=== PATIENT | female | born 1965 | race Caucasian/White ===

== ENCOUNTER → 2016-11-11 | Outpatient (CLI) | payer MEDICAID ==
[~2016-11-11] MED LIST: ALPR1TAB; ALPR1TAB21; BSP10T PO; DIAZ-345 PO; ESTR1TAB24; HYDR-2890 PO; HYDR-3714 PO; HYDR1TAB PO; PENI500T PO; PREG150C PO; PROP10TA8; QTP100T; SIMV20TA3 PO; TRAM50TA2; TRAM50TA2 PO
--- NOTE | 2016-11-11 13:33 | Diagnostic Imaging Report ---
Bilateral sacroiliac joints. INDICATION: Cervical carcinoma, low back pain. AP and lateral views were obtained. There are no previous plain film examinations available for comparison. The MRI lumbar spine exam of 03/14/2013, failed to show any abnormality of the visualized sacrum. On this study there is no fracture or acute bony abnormality identified. There is mild symmetrical sclerosis of the sacroiliac joints. There is a 0.5 x 4.7-cm tubular calcified structure overlying the left lateral aspect of L5 and the left sacral promontory. This is of uncertain etiology but unlikely to be clinically significant. The soft tissues are unremarkable. IMPRESSION: 1. There is no evidence for an acute bony abnormality. 2. There is mild symmetrical sclerosis of the sacroiliac joints. 3. The calcified tubular structure overlying the left sacral promontory and L5 is of uncertain etiology, but unlikely to be clinically significant. Dictated by: Dictated on workstation # [id number]
--- NOTE | 2016-11-11 13:38 | Diagnostic Imaging Report ---
Lumbar spine. INDICATION: Back pain. AP, lateral, and spot lateral views were obtained. The AP view reveals that there are six lumbar-type vertebrae. This is a developmental variant. For the purposes of this report the sixth vertebra will be referred to as S1. The lateral view shows the vertebral body heights and alignment to be generally within normal limits and similar to the MRI lumbar spine exam of 03/14/2013. There is no fracture or acute bony abnormality identified. The intervertebral disc spaces are well maintained. As noted on the sacrum and coccyx exam performed in conjunction with this study, there is a tubular calcified structure overlying the lateral aspect of the inferior plate of L5 and the sacral promontory on the left. This is of uncertain etiology, although unlikely to be clinically significant. There is no paraspinal mass identified. IMPRESSION: 1. There is no evidence for an acute bony abnormality of the lumbar spine. 2. If there is clinical concern regarding spinal stenosis or nerve root encroachment, then a repeat MRI lumbar spine exam would be recommended. 3. There are six lumbar-type segments. This is a developmental variant. Dictated by: Dictated on workstation # [id number]
== END ==
LOC: RAD 09:59
PROVIDERS: ATTEND Pain Medicine Pain Medicine
DX: M54.5 Low back pain (principal); M53.3 Sacrococcygeal disorders, not elsewhere classified
CPT/HCPCS: 72100; 72202

== ENCOUNTER 2016-11-27 11:23 | Outpatient (CLI) | payer MEDICAID ==
[~2016-11-27] VITALS: Ht 165.1 cm; Wt 47.6 kg
[2016-11-27] MEDS ORDERED: LIDOCAINE 1% INJ 20 ML (XYLOCAINE) VIAL ONE (11:32)
[2016-11-27] MEDS ORDERED: TRIAMCINOLONE ACET (KENALOG-40) 40 MG/ML 1 ML VIAL ONE (11:32)
[2016-11-27] MEDS ORDERED: BUPIVACAINE 0.25% 30 ML (SENSORCAINE) VIAL ONE (11:32)
[2016-11-27 11:38] VITALS: BP 142/93
[2016-11-27 11:58] VITALS: BP 142/62
--- NOTE | 2016-11-27 14:53 | Pain Medicine-Procedure ---
Procedure Pre-Op/Post-Op Diagnosis Diagnosis: sacrococcygeal disorder Indications for Operation Hip pain Attending Surgeon Wale Procedure Date of Service: Nov 27, 2016 Procedure: Flouroscopic guided bilateral sacroiliac joint injection PROCEDURE IN DETAIL: After obtaining informed consent from the patient, the patient's chart was reviewed. The patient was then brought to the procedure room and placed in the prone position. A time out was performed. The back was prepped with antiseptic solution and under fluoroscopic guidance the patient's sacroiliac joint on both sides was identified. Attention was first turned to the right sacroiliac joint injection where 2 mL's of 1% lidocaine was used to anesthetize the skin and then two 22-gauge 3.5 inch spinal needles were inserted and advanced under flouroscopic guidance until they were in the lower 1 /3 of the right sacroiliac joint. Next, attention was then turned to the left sacroiliac joint injection where 2 mL's of 1% lidocaine was used to anesthetize the skin and then two 22-gauge 3.5 inch spinal needles were inserted and advance under flouroscopic guidance until they were in the lower 1/3 of the sacroiliac joint on the left side. After negative aspiration, each needle was injected with 40 mg of Kenalog along with 2 mL's of 0.25% marcaine. All needles were then flushed with 1% lidocaine and then removed. Band-Aids were applied to all the sites and the patient tolerated the procedure well and was taken to the recovery area in stable condition. Complications None GENARO ARAYA MD Nov 27, 2016 2:53 pm
== END 2016-11-27 11:59 | disposition home or self-care (01) ==
LOC: CARD 11:23
PROVIDERS: ATTEND Pain Medicine Pain Medicine
DX: M53.3 Sacrococcygeal disorders, not elsewhere classified (principal); M51.16 Intervertebral disc disorders with radiculopathy, lumbar region
CPT/HCPCS: 27096

== ENCOUNTER → 2017-08-13 | Outpatient (CLI) | payer MEDICAID ==
--- NOTE | 2017-08-16 09:33 | Diagnostic Imaging Report ---
INDICATION: Screening. TECHNIQUE: Screening digital mammography was performed bilaterally with a Computer Aided Detection (CAD) System. COMPARISON: 06/25/2010, 07/28/2009, and 11/23/2007. FINDINGS: There is a moderate amount of residual fibroglandular tissue bilaterally. There are some vascular calcifications and benign type calcifications. There is no dominant mass, spiculated lesion, or suspicious calcification identified. The skin, nipples, and axillae are unremarkable. IMPRESSION: Benign findings. ACR BI-RADS Category 2: Benign findings. Result letter will be mailed to the patient. Note: At least 10% of breast cancer is not imaged by mammography. Dictated by: Dictated on workstation # [id number]
== END ==
LOC: RAD 09:47
PROVIDERS: ATTEND Family Medicine
DX: Z12.31 Encounter for screening mammogram for malignant neoplasm of breast (principal)
CPT/HCPCS: 77067

== ENCOUNTER → 2018-10-28 | Outpatient (CLI) | payer MEDICAID ==
--- NOTE | 2018-10-28 11:04 | Diagnostic Imaging Report ---
INDICATION: Routine screening. COMPARISON is made with prior mammogram from 08/13/2017. TECHNIQUE: 2-D and 3-D bilateral screening mammography was performed with CAD. FINDINGS: Both breasts are radiographically dense, limiting the sensitivity of mammography. There are vascular calcifications bilaterally. No mass or malignant-appearing microcalcifications are seen. The axillae are unremarkable. IMPRESSION: BI-RADS category 1. No mammographic features suspicious for malignancy are identified. Dictated by: Dictated on workstation # [id number]
== END ==
LOC: RAD 08:55
PROVIDERS: ATTEND Family Medicine
DX: Z12.31 Encounter for screening mammogram for malignant neoplasm of breast (principal)
CPT/HCPCS: 77067

== ENCOUNTER 2020-07-06 18:21 | Observation (INO) | payer MEDICAID ==
[~2020-07-06] VITALS: Ht 170 cm; Wt 53.2 kg
[2020-07-06] MEDS ORDERED: ASPIRIN 81 MG CHEW (CHILDREN'S ASA) PO ONE (18:30)
[2020-07-06] MEDS ORDERED: LACTATED RINGERS 1,000 ML IV ONE (18:36)
[2020-07-06 18:40] LABS: BASOPHILS # (AUTO) 0.1 10^3/uL (0.0-0.1); BASOPHILS % (AUTO) 1 % (0-10); EOSINOPHILS # (AUTO) 0.1 10^3/uL (0.0-0.3); EOSINOPHILS % (AUTO) 1 % (0-10); HEMATOCRIT 47 % (35-52); HEMOGLOBIN 16.6 g/dL (11.5-16.0); LYMPHOCYTES # (AUTO) 2.7 10^3/uL (1.0-4.0); LYMPHOCYTES % (AUTO) 22 % (12-44); MEAN CORPUSCULAR HEMOGLOBIN 33 pg (25-34); MEAN CORPUSCULAR HGB CONC 35 g/dL (32-36); MEAN CORPUSCULAR VOLUME 94 fL (80-99); MEAN PLATELET VOLUME 8.7 fL (9.0-12.2); MONOCYTES # (AUTO) 1.2 10^3/uL (0.0-1.0); MONOCYTES % (AUTO) 10 % (0-12); NEUTROPHILS # (AUTO) 8.1 10^3/uL (1.8-7.8); NEUTROPHILS % (AUTO) 66 % (42-75); PLATELET COUNT 326 10^3/uL (130-400); WHITE BLOOD COUNT 12.2 10^3/uL (4.3-11.0)
[2020-07-06] MEDS ORDERED: LORazepam INJ 2 MG/ML (ATIVAN) VIAL IVP ONE (18:45)
--- NOTE | 2020-07-06 18:49 | NUR ---
TO CT PER W/C
[2020-07-06 18:52] LABS: INR 0.9 (0.8-1.4); POTASSIUM 3.2 MMOL/L (3.6-5.0); PROTHROMBIN TIME PATIENT 12.4 SEC (12.2-14.7)
[2020-07-06 18:53] LABS: CALCIUM 8.7 MG/DL (8.5-10.1)
[2020-07-06 18:54] LABS: TOTAL PROTEIN 6.3 GM/DL (6.4-8.2)
[2020-07-06 18:56] LABS: BILIRUBIN,TOTAL 0.4 MG/DL (0.1-1.0)
[2020-07-06 18:58] LABS: CREATININE SERUM 1.4 MG/DL (0.60-1.30)
[2020-07-06 19:01] LABS: MAGNESIUM 1.9 MG/DL (1.6-2.4)
--- NOTE | 2020-07-06 19:40 | Diagnostic Imaging Report ---
EXAMINATION: Chest, 1 view. HISTORY: Chest pain. COMPARISON: Chest radiograph 10/03/2008. FINDINGS: Heart size and pulmonary vasculature are normal. The lungs are clear without consolidation, pleural effusion or pneumothorax. The osseous structures are intact. IMPRESSION: No acute radiographic abnormality in the chest. Dictated by: Dictated on workstation # [id number]
[2020-07-06] MEDS ORDERED: ENOXAPARIN 60 MG/0.6 ML (LOVENOX) SYR SC ONE (20:15)
[2020-07-06] MEDS ORDERED: KCL 10 MEQ TAB (MICRO K) PO ONE (20:30)
--- NOTE | 2020-07-06 20:31 | ED Chest Pain ---
General Chief Complaint: Chest Pain Stated Complaint: CHEST PAIN Nursing Triage Note: PATIENT STATES TOOK NEW MEDICATION (UNKNOWN MEDICATION) FOR HTN TONIGHT, STATES SHE FELT DIZZY, AND RAPID HEART BEAT. PAIN IN CHEST, RAPID BREATHING Nursing Sepsis Screen: No Definite Risk Source: patient, EMS Exam Limitations: no limitations History of Present Illness Date Seen by Provider: Jul 06, 2020 Time Seen by Provider: 18:26 Initial Comments This 55-year-old woman presents to the emergency room via EMS with a couple weeks of intermittent lightheadedness and dizziness, pleuritic chest pain, and anxiety. This became worse tonight. She has no known heart disease but is a sm oker. She is noted to be tachycardic. EMS notes that she appeared to be hyperventilating when they first arrived. Family members were recently Covid positive but she has not been exposed to them in over 2 weeks. Patient herself had a Covid test performed at an outpatient facility after these symptoms started. That was reportedly negative. She denies any new cough or fever. Allergies and Home Medications Allergies Coded Allergies: Anand Known Allergies (Verified Allergy, Unknown, 09/15/06) Home Medications Hydrocodone Bit/Acetaminophen 1 Tab Tablet, 1 TAB PO Q4H PRN for PAIN Prescribed by: TETE MIR on 01/22/15 1134 Simvastatin 20 Mg Tablet, 20 MG PO DAILY, (Reported) Patient Home Medication List Home Medication List Reviewed: Yes Review of Systems Review of Systems Constitutional: no symptoms reported EENTM: No Symptoms Reported Respiratory: See HPI Cardiovascular: See HPI Gastrointestinal: Nausea Genitourinary: No Symptoms Reported Musculoskeletal: no symptoms reported Skin: no symptoms reported Psychiatric/Neurological: See HPI Endocrine: No Symptoms Reported Hematologic/Lymphatic: No Symptoms Reported Past Zkiasak-Nehkkv-Aeffln Hx Past Med/Social Hx: Reviewed Nursing Past Med/Soc Hx Patient Social History Recent Foreign Travel: No Contact w/Someone Who Travel: No Recent Infectious Disease Expo: Yes Physical Abuse: No Sexual Abuse: No Mistreated: No Fear: No Past Medical History Surgeries: Yes Hysterectomy Respiratory: Yes (Tobaccoism) Cardiac: Yes High Cholesterol, Hypertension Neurological: No Reproductive Disorders: No [employer]IONER [employer]SERVATION [employer] RESOURCES History: Hysterectomy Sexually Transmitted Disease: No Gastrointestinal: No Musculoskeletal: Yes Chronic Back Pain HEENT: No Cancer: Yes Cervical Did You Recieve Any Treatments: Yes What Type of Treatment Did You: Surgical Intervention Psychosocial: Yes Anxiety, Depression Family Medical History No Pertinent Family Hx Physical Exam Vital Signs Vital Signs - First Documented 07/06/20 18:29 Pulse 108 Resp 18 B/P (MAP) 136/77 (96) Pulse Ox 100 O2 Delivery Room Air Capillary Refill : Less Than 3 Seconds Height, Weight, BMI Height: 5'5.00" Weight: 105lbs. 0.0oz. 47.976224st; 15.00 BMI Method: General Appearance: WD/WN, Anxious, Thin HEENT: PERRL/EOMI, Normal ENT Inspection Neck: Normal Inspection Respiratory: Lungs Clear, Normal Breath Sounds, No Accessory Muscle Use, No Respiratory Distress, Other (Upper anterior chest tender to palpation) Cardiovascular: No Edema, No Murmur, Normal Peripheral Pulses, Tachycardia Gastrointestinal: Normal Bowel Sounds, Soft, Tenderness (Slight tenderness in the epigastric area with palpation) Extremity: Normal Inspection, Non Tender, No Calf Tenderness, No Pedal Edema Neurologic/Psychiatric: Alert, Oriented x3, No Motor/Sensory Deficits, e commerce project manager II- XII Norm as Tested, Other (Anxious, normal affect) Skin: Normal Color, Warm/Dry Progress/Results/Core Measures Results/Orders Lab Results Laboratory Tests Test 07/06/20 18:30 Range/Units White Blood Count 12.2 H 4.3-11.0 10^3/uL Red Blood Count 5.05 3.80-5.11 10^6/uL Hemoglobin 16.6 H 11.5-16.0 g/dL Hematocrit 47 35-52 % Mean Corpuscular Volume 94 80-99 fL Mean Corpuscular Hemoglobin 33 25-34 pg Mean Corpuscular Hemoglobin Concent 35 32-36 g/dL Red Cell Distribution Width 13.0 10.0-14.5 % Platelet Count 326 130-400 10^3/uL Mean Platelet Volume 8.7 L 9.0-12.2 fL Immature Granulocyte % (Auto) 0 % Neutrophils (%) (Auto) 66 42-75 % Lymphocytes (%) (Auto) 22 12-44 % Monocytes (%) (Auto) 10 0-12 % Eosinophils (%) (Auto) 1 0-10 % Basophils (%) (Auto) 1 0-10 % Neutrophils # (Auto) 8.1 H 1.8-7.8 10^3/uL Lymphocytes # (Auto) 2.7 1.0-4.0 10^3/uL Monocytes # (Auto) 1.2 H 0.0-1.0 10^3/uL Eosinophils # (Auto) 0.1 0.0-0.3 10^3/uL Basophils # (Auto) 0.1 0.0-0.1 10^3/uL Immature Granulocyte # (Auto) 0.0 0.0-0.1 10^3/uL Erythrocyte Sedimentation Rate 44 H 0-30 MM/HR Prothrombin Time 12.4 12.2-14.7 SEC INR Comment 0.9 0.8-1.4 Activated Partial Thromboplast Time 29 24-35 SEC D-Dimer 1.82 H 0.00-0.49 UG/ML Sodium Level 132 L 135-145 MMOL/L Potassium Level 3.2 L 3.6-5.0 MMOL/L Chloride Level 92 L 98-107 MMOL/L Carbon Dioxide Level 27 21-32 MMOL/L Anion Gap 13 5-14 MMOL/L Blood Urea Nitrogen 18 7-18 MG/DL Creatinine 1.40 H 0.60-1.30 MG/DL Estimat Glomerular Filtration Rate 39 BUN/Creatinine Ratio 13 Glucose Level 120 H 70-105 MG/DL Calcium Level 8.7 8.5-10.1 MG/DL Corrected Calcium 9.5 8.5-10.1 MG/DL Magnesium Level 1.9 1.6-2.4 MG/DL Total Bilirubin 0.4 0.1-1.0 MG/DL Aspartate Amino Transf (AST/SGOT) 20 5-34 U/L Alanine Aminotransferase (ALT/SGPT) 21 0-55 U/L Alkaline Phosphatase 104 40-136 U/L Myoglobin 54.2 10.0-92.0 NG/ML Troponin I 0.035 H <0.028 NG/ML C-Reactive Protein High Sensitivity 0.10 0.00-0.50 MG/DL Total Protein 6.3 L 6.4-8.2 GM/DL Albumin 3.0 L 3.2-4.5 GM/DL My Orders Orders - EMETERIO WALLACE MD Cbc With Automated Diff (07/06/20 18:26) Magnesium (07/06/20 18:26) Chest 1 View, Ap/Pa Only (07/06/20 18:26) Ekg Tracing (07/06/20 18:26) Comprehensive Metabolic Panel (07/06/20 18:26) Myoglobin Serum (07/06/20 18:26) Protime With Inr (07/06/20 18:) Partial Thromboplastin Time (07/06/20 18:26) O2 (07/06/20 18:26) Monitor-Rhythm Ecg Trace Only (07/06/20 18:26) Lipid Panel (07/07/20 06:00) Ed Iv/Invasive Line Start (07/06/20 18:26) Troponin I (07/06/20 18:26) Aspirin Chewable Tablet (Baby Aspirin Ch (07/06/20 18:30) Hs C Reactive Protein (07/06/20 18:27) Lorazepam Injection (Ativan Injection) (07/06/20 18:45) Lactated Ringers (Lr 1000 Ml Iv Solution (07/06/20 18:36) Fibrin Degradation Products (07/06/20 18:36) Erythrocyte Sedimentation Rate (07/06/20 19:50) Enoxaparin Injection (Lovenox Injection) (07/06/20 20:15) Potassium Chloride (Tablet) (Klor Con Ta (07/06/20 20:30) Medications Given in ED Current Medications Medications Dose Ordered Sig/Brandon Route Start Time Stop Time Status Last Admin Dose Admin Aspirin 324 mg ONCE ONCE PO 07/06/20 18:30 07/06/20 18:31 DC 07/06/20 19:07 324 MG Enoxaparin Sodium 45 mg ONCE ONCE SC 07/06/20 20:15 07/06/20 20:16 DC 07/06/20 20:23 45 MG Lactated Ringer's 1,000 ml @ 0 mls/hr Q0M ONCE IV 07/06/20 18:36 07/06/20 18:38 DC 07/06/20 19:07 1,000 MLS/HR Lorazepam 0.5 mg ONCE ONCE IVP 07/06/20 18:45 07/06/20 18:46 DC 07/06/20 19:08 0.5 MG Vital Signs/I&O 07/06/20 18:29 Pulse 108 Resp 18 B/P (MAP) 136/77 (96) Pulse Ox 100 O2 Delivery Room Air Blood Pressure Mean: 96 Progress Progress Note : Time: 20:30 Progress Note Patient was seen and examined and work-up pursued. Patient was found to have both elevated D-dimer and troponin. Unfortunately, GFR did not allow CT angiogram. We are hydrating her with a liter of IV fluids and then will run fluids above maintenance rate through the night. Patient was given Ativan and felt much better after Ativan combined with fluids. Aspirin was administered in the ER. After D-dimer returned elevated and I discussed with Dr. Mauro, Lovenox was also ordered. Dr. Muaro was consulted and patient was admitted to Dr. Méndez. Oral potassium was given to treat hypokalemia in the ER. Initial ECG Impression Date: Jul 06, 2020 Initial ECG Impression Time: 18:26 Initial ECG Rate: 94 Initial ECG Rhythm: S.Tach Comment Sinus tachycardia with no ST elevation or depression. Probable LVH. No abnormal intervals. Diagnostic Imaging Diagonstic Imaging: Xray Plain Films/CT/US/NM/MRI: chest Comments Chest x-ray reviewed by me and report reviewed. See report below: NAME: DESIRE SNOW [facility] REC#: [id number] PT STATUS: REG ER : 1965 PHYSICIAN: EMETERIO WALLACE MD ADMIT DATE: 07/06/20/ER Signed Date of Exam:07/06/20 CHEST 1 VIEW, AP/PA ONLY EXAMINATION: Chest, 1 view. HISTORY: Chest pain. COMPARISON: Chest radiograph 10/03/2008. FINDINGS: Heart size and pulmonary vasculature are normal. The lungs are clear without consolidation, pleural effusion or pneumothorax. The osseous structures are intact. IMPRESSION: No acute radiographic abnormality in the chest. Dictated by: Dictated on workstation # [id number] Dict: 07/06/201937 Trans: 07/06/201942 [facility] [id number] Interpreted by: JOSE KAM DO Electronically signed by: JOSE KAM DO 07/06/201942 Departure Communication (Admissions) Time/Spoke to Admitting Phy: 20:30 Dr. Méndez Time/Spoke to Consulting Phy: 19:40 Dr. Mauro Impression Primary Impression: Chest pain Qualified Codes: R07.9 - Chest pain, unspecified Additional Impressions: D-dimer, elevated Elevated troponin Anxiety Renal insufficiency Hypokalemia Disposition: ADMITTED INPATIENT Condition: Improved Admissions Decision to Admit Reason: Admit from ER (General) Decision to Admit/Date: Jul 06, 2020 Time/Decision to Admit Time: 19:30 Departure-Patient Inst. Referrals: NIRMALA REECE DO (PCP/Family) Primary Care Physician EMETERIO WALLACE MD Jul 06, 2020 20:30
--- NOTE | 2020-07-06 21:50 | NUR ---
EDYDESIRE Angel admitted to room 419-1, with an admitting diagnosis of chest pain, elevated d-dimer, elevated troponin, on 07/06/20 from [facility] ED via wheelchair, accompanied by staff.DESIRE SNOW introduced to surroundings, call light, bed controls, phone, TV, temperature control, lights, meal times, smoking policy, visitor policy, side rail policy, bathrooms and showers. Patient Rights given to patient in the handbook. DESIRE SNOW verbalizes understanding that [facility] is not responsible for the loss or damage to any personal effects or valuables that are kept in the patients possession during their hospitalization. The following Patient Care Plans were discussed with the patient: pain management, risk factors, Discharge Planning. DESIRE SNOW verbalizes understanding of Interdisciplinary Patient Education. Patient and/or family were informed about the Rapid Response Team and its purpose.
[2020-07-06 22:07] VITALS: BP 105/75
[2020-07-06] MEDS ORDERED: LORazepam INJ 2 MG/ML (ATIVAN) VIAL IV PRN (23:15)
[2020-07-06] MEDS ORDERED: ONDANSETRON 4 MG/2 ML (SDV) Z0FRAN IV PRN (23:15)
[2020-07-06] MEDS ORDERED: ACETAMINOPHEN 325 MG TABLET PO PRN (23:15)
[2020-07-06 23:26] VITALS: BP 94/52
[2020-07-06] MEDS ORDERED: morphine INJ 4 MG/ML 1 ML (VIAL/SYRINGE) IV PRN (23:30)
[2020-07-06] MEDS ORDERED: FAMOTIDINE 20MG/2ML IV (PEPCID) IV PRN (23:30)
[2020-07-06 23:40] VITALS: BP 94/53
[2020-07-06 23:54] VITALS: BP 108/58
[2020-07-07] VITALS (9 sets, daily range): BP systolic 94–130; BP diastolic 53–82
[2020-07-07] MEDS: LACTATED RINGERS 1,000 ML IV SCH ×5 (00:19→20:35)
[2020-07-07] MEDS: FAMOTIDINE 20 MG (PEPCID) TABLET PO SCH ×2 (00:20→20:35)
--- NOTE | 2020-07-07 01:44 | NUR ---
This RN contacted Dr. Mauro and informed him that patients 0030 repeat troponin indicated troponin elevation from 0.035 to 0.046. No new orders at this time.
[2020-07-07 05:54] LABS: BASOPHILS # (AUTO) 0.1 10^3/uL (0.0-0.1); BASOPHILS % (AUTO) 1 % (0-10); EOSINOPHILS # (AUTO) 0.2 10^3/uL (0.0-0.3); EOSINOPHILS % (AUTO) 2 % (0-10); HEMATOCRIT 38 % (35-52); HEMOGLOBIN 13.2 g/dL (11.5-16.0); LYMPHOCYTES # (AUTO) 3.4 10^3/uL (1.0-4.0); LYMPHOCYTES % (AUTO) 40 % (12-44); MEAN CORPUSCULAR HEMOGLOBIN 33 pg (25-34); MEAN CORPUSCULAR HGB CONC 35 g/dL (32-36); MEAN CORPUSCULAR VOLUME 96 fL (80-99); MEAN PLATELET VOLUME 9.6 fL (9.0-12.2); MONOCYTES # (AUTO) 0.9 10^3/uL (0.0-1.0); MONOCYTES % (AUTO) 11 % (0-12); NEUTROPHILS # (AUTO) 3.9 10^3/uL (1.8-7.8); NEUTROPHILS % (AUTO) 46 % (42-75); PLATELET COUNT 289 10^3/uL (130-400); WHITE BLOOD COUNT 8.5 10^3/uL (4.3-11.0)
[2020-07-07 06:10] LABS: TRIGLYCERIDES 158 MG/DL (<150); VLDL CHOLESTEROL 32 MG/DL (5-40)
[2020-07-07 06:15] LABS: CHOLESTEROL 237 MG/DL (< 200); HDL CHOLESTEROL 46 MG/DL (40-60)
[2020-07-07] MEDS ORDERED: FLU QUADRIvalent (3YOA+) 60 mcg/0.5 ml 2020-21 (AFLURIA) IM ONE (07:00)
[2020-07-07 07:03] LABS: ALBUMIN 2.3 GM/DL (3.2-4.5)
[2020-07-07 07:04] LABS: CHLORIDE 99 MMOL/L (98-107); POTASSIUM 3.1 MMOL/L (3.6-5.0); SODIUM 135 MMOL/L (135-145)
[2020-07-07 07:05] LABS: CALCIUM 7.6 MG/DL (8.5-10.1)
[2020-07-07 07:06] LABS: GLUCOSE 92 MG/DL (70-105); TOTAL PROTEIN 4.6 GM/DL (6.4-8.2)
[2020-07-07 07:07] LABS: CARBON DIOXIDE 24 MMOL/L (21-32)
[2020-07-07 07:08] LABS: BILIRUBIN,TOTAL 0.2 MG/DL (0.1-1.0)
[2020-07-07 07:09] LABS: ALKALINE PHOSPHATASE 85 U/L (40-136)
[2020-07-07 07:10] LABS: CREATININE SERUM 0.94 MG/DL (0.60-1.30); GFR ESTIMATED > 60
[2020-07-07 07:11] LABS: BUN/CREATININE RATIO 29
[2020-07-07 07:12] LABS: ALANINE AMINOTRANSFERASE 14 U/L (0-55)
--- NOTE | 2020-07-07 07:28 | History & Physical-Hospitalist ---
History of Present Illness HPI/Chief Complaint CC: Chest pain HPI: This is a 55yoWF clinic patient of [facility] who presented with chest pain to ER. Patient appears to be very debilitated overall and appears fatigued. Patient does smoke and she is non-compliant with MDI's. CT scan obtained revealed likely PHTN but no PE. ECHO done today. Potassium is supplemented. Stress test scheduled for tomorrow. Source: patient Exam Limitations: no limitations Date Seen 07/07/20 Time Seen by a Provider: 11:30 Attending Physician Zelda Joshua DO PCP Camilo Boone DO Referring Physician Date of Admission Jul 06, 2020 at 20:20 Home Medications & Allergies Home Medications Reviewed patient Home Medication Reconciliation performed by pharmacy medication reconciliations highway maintenance technician and/or nursing. Patients Allergies have been reviewed. Allergies Allergies Coded Allergies NKANo Known Allergies (Verified Allergy, Unknown, 09/15/06) Past Yjqyzql-Xjbrzn-Hcoquc Hx Past Med/Social Hx: Reviewed Nursing Past Med/Soc Hx, Reviewed and Corrections made Patient Social History Marrital Status: single Employed/Student: unemployed Alcohol Use: Denies Use Smoking Status: Current Everyday Smoker Recent Foreign Travel: No Contact w/other who traveled: No Recent Infectious Disease Expo: Yes Past Medical History Surgeries: Hysterectomy Respiratory: Chronic Bronchitis Cardiac: High Cholesterol, Hypertension Reproductive: No Sexually Transmitted Disease: No Hysterectomy Musculoskeletal: Chronic Back Pain Cancer: Cervical Did You Recieve Any Treatments: Yes What Type of Treatment Did You: Surgical Intervention Psychosocial: Anxiety, Depression Family History Alcoholism 19 MOTHER, Onset:15's - 20 G8 BROTHER, Onset:15's - 20 Arthritis 19 FATHER Asthma 19 MOTHER Cardiovascular disease 19 FATHER, Onset:25's - 30 19 MOTHER Completed stroke G8 BROTHER, Onset:40's - 50 Congenital heart disease 19 MOTHER Deafness or hearing loss 19 FATHER Diabetes mellitus 19 FATHER, Onset:30's - 40 Drug abuse 19 MOTHER, Onset:20's - 25 Headache disorder 19 FATHER Hypertension 19 FATHER G8 BROTHER G8 SISTER Myocardial infarction 19 FATHER Respiratory disorder 19 MOTHER, Onset:50's - 60 Seizure disorder G8 SISTER Severe allergy 19 MOTHER Tuberculosis 19 MOTHER No Pertinent Family Hx Review of Systems Constitutional: see HPI Respiratory: short of breath, wheezing Cardiovascular: chest pain Physical Exam Physical Exam Vital Signs Vital Signs - First Documented 07/06/20 07/06/20 18:29 22:02 Temp 37.0 Pulse 108 Resp 18 B/P (MAP) 136/77 (96) Pulse Ox 100 O2 Delivery Room Air Capillary Refill : Less Than 3 Seconds Height, Weight, BMI Height: 5'5.00" Weight: 105lbs. 0.0oz. 47.531495ir; 18.40 BMI Method: General Appearance: No Apparent Distress, Chronically ill, Thin Eyes: Right Eye Normal Inspection, Right Eye PERRL HEENT: PERRL/EOMI, Normal ENT Inspection, Pharynx Normal, Moist Mucous Membranes Neck: Full Range of Motion, Normal Inspection, Non Tender Respiratory: Chest Non Tender, No Accessory Muscle Use, No Respiratory Distress, Crackles, Decreased Breath Sounds, Wheezing Cardiovascular: Regular Rate, Rhythm, No Edema, No Gallop, No JVD, No Murmur, Normal Peripheral Pulses Gastrointestinal: Normal Bowel Sounds, No Organomegaly, No Pulsatile Mass, Non Tender, Soft Back: Normal Inspection, No CVA Tenderness, No Vertebral Tenderness Extremity: Normal Capillary Refill, Normal Inspection, Normal Range of Motion, Non Tender, No Calf Tenderness, No Pedal Edema Neurologic/Psychiatric: Alert, Oriented x3, No Motor/Sensory Deficits, Normal Mood/Affect Skin: Normal Color, Warm/Dry Lymphatic: No Adenopathy Results Results/Procedures Labs Laboratory Tests 07/06/20 18:30 07/07/20 05:20 Patient resulted labs reviewed. Assessment/Plan Admission Diagnosis Assessment: Chest pain Elevated troponin ANUPAMA Smoker Crackles on exam HTN HLP Plan: IVF Stress test tomorrow Statin Admission Status: Observation Diagnosis/Problems Diagnosis/Problems (1) Chest pain Status: Acute Qualifiers: Chest pain type: unspecified Qualified Codes: R07.9 - Chest pain, unspecified (2) Elevated troponin Status: Acute (3) D-dimer, elevated Status: Acute (4) Renal insufficiency Status: Acute (5) Anxiety Status: Acute Clinical Quality Measures AMI/AHF: ASA po Prior to arrival: No DVT/VTE Risk/Contraindication: Risk Factor Score Per Nursin RFS Level Per Nursing on Admit: 3=High ZELDA JOSHUA DO Jul 07, 2020 07:27
--- NOTE | 2020-07-07 08:41 | Consultation-Cardiology ---
HPI-Cardiology Cardiology Consultation Date of Consultation 07/07/20 Date of Admission Time Seen by Provider: 08:38 Indication: chest pain HPI 55 years old lady was seen at [facility] for generalized weakness and loss of energy. Patient reported that she has been having migraine headache persistently for the past 4 days. Noted to be severely hypertensive. Given some medication and sent home, at home she started to have chest pain described as dull achiness in the retrosternal area. Mild shortness of breath. Came into the emergency room, noted to have mild elevation in troponin. Had nondiagnostic EKG changes. Home Medications & Allergies Allergies: Coded Allergies: NKANo Known Allergies (Verified Allergy, Unknown, 09/15/06) [id number] Hx Patient Social History Smoking Status: Current Everyday Smoker Recent Foreign Travel: No Recent Infectious Disease Expo: Yes Past Medical History Discussed below Family Medical History Significant Family History: No Pertinent Family Hx Family History: Alcoholism 19 MOTHER, Onset:15's - 20 G8 BROTHER, Onset:15's - 20 Arthritis 19 FATHER Asthma 19 MOTHER Cardiovascular disease 19 FATHER, Onset:25's - 30 19 MOTHER Completed stroke G8 BROTHER, Onset:40's - 50 Congenital heart disease 19 MOTHER Deafness or hearing loss 19 FATHER Diabetes mellitus 19 FATHER, Onset:30's - 40 Drug abuse 19 MOTHER, Onset:20's - 25 Headache disorder 19 FATHER Hypertension 19 FATHER G8 BROTHER G8 SISTER Myocardial infarction 19 FATHER Respiratory disorder 19 MOTHER, Onset:50's - 60 Seizure disorder G8 SISTER Severe allergy 19 MOTHER Tuberculosis 19 MOTHER Review of Systems-General Review of Systems Constitutional: no symptoms reported, see HPI, dizziness, malaise EENTM: see HPI, no symptoms reported Respiratory: see HPI; No cough; dyspnea on exertion; No hemoptysis, No orthopnea, No phlegm, No short of breath, No stridor, No wheezing, No other Cardiovascular: see HPI, chest pain; No edema, No Hx of Intervention, No palpitations, No syncope, No vascular heart diseas, No other Gastrointestinal: no symptoms reported, see HPI Genitourinary: no symptoms reported, see HPI Musculoskeletal: no symptoms reported, see HPI Skin: no symptoms reported, see HPI Psychiatric/Neurological: See HPI, Anxiety Reviewed Test Results Reviewed Test Results Lab Laboratory Tests Test 07/06/20 18:30 07/07/20 00:45 07/07/20 05:20 Range/Units White Blood Count 12.2 H 8.5 4.3-11.0 10^3/uL Red Blood Count 5.05 3.98 3.80-5.11 10^6/uL Hemoglobin 16.6 H 13.2 # 11.5-16.0 g/dL Hematocrit 47 38 35-52 % Mean Corpuscular Volume 94 96 80-99 fL Mean Corpuscular Hemoglobin 33 33 25-34 pg Mean Corpuscular Hemoglobin Concent 35 35 32-36 g/dL Red Cell Distribution Width 13.0 13.1 10.0-14.5 % Platelet Count 326 289 130-400 10^3/uL Mean Platelet Volume 8.7 L 9.6 9.0-12.2 fL Immature Granulocyte % (Auto) 0 0 % Neutrophils (%) (Auto) 66 46 42-75 % Lymphocytes (%) (Auto) 22 40 12-44 % Monocytes (%) (Auto) 10 11 0-12 % Eosinophils (%) (Auto) 1 2 0-10 % Basophils (%) (Auto) 1 1 0-10 % Neutrophils # (Auto) 8.1 H 3.9 1.8-7.8 10^3/uL Lymphocytes # (Auto) 2.7 3.4 1.0-4.0 10^3/uL Monocytes # (Auto) 1.2 H 0.9 0.0-1.0 10^3/uL Eosinophils # (Auto) 0.1 0.2 0.0-0.3 10^3/uL Basophils # (Auto) 0.1 0.1 0.0-0.1 10^3/uL Immature Granulocyte # (Auto) 0.0 0.0 0.0-0.1 10^3/uL Erythrocyte Sedimentation Rate 44 H 0-30 MM/HR Prothrombin Time 12.4 12.2-14.7 SEC INR Comment 0.9 0.8-1.4 Activated Partial Thromboplast Time 29 24-35 SEC D-Dimer 1.82 H 0.00-0.49 UG/ML Sodium Level 132 L 135 135-145 MMOL/L Potassium Level 3.2 L 3.1 L 3.6-5.0 MMOL/L Chloride Level 92 L 99 98-107 MMOL/L Carbon Dioxide Level 27 24 21-32 MMOL/L Anion Gap 13 12 5-14 MMOL/L Blood Urea Nitrogen 18 27 H 7-18 MG/DL Creatinine 1.40 H 0.94 0.60-1.30 MG/DL Estimat Glomerular Filtration Rate 39 > 60 BUN/Creatinine Ratio 13 29 Glucose Level 120 H 92 70-105 MG/DL Calcium Level 8.7 7.6 L 8.5-10.1 MG/DL Corrected Calcium 9.5 9.0 8.5-10.1 MG/DL Magnesium Level 1.9 1.6-2.4 MG/DL Total Bilirubin 0.4 0.2 0.1-1.0 MG/DL Aspartate Amino Transf (AST/SGOT) 20 18 5-34 U/L Alanine Aminotransferase (ALT/SGPT) 21 14 0-55 U/L Alkaline Phosphatase 104 85 40-136 U/L Myoglobin 54.2 10.0-92.0 NG/ML Troponin I 0.035 H 0.046 H <0.028 NG/ML C-Reactive Protein High Sensitivity 0.10 0.00-0.50 MG/DL Total Protein 6.3 L 4.6 L 6.4-8.2 GM/DL Albumin 3.0 L 2.3 L 3.2-4.5 GM/DL Triglycerides Level 158 H <150 MG/DL Cholesterol Level 237 H < 200 MG/DL LDL Cholesterol Direct 190 H 1-129 MG/DL VLDL Cholesterol 32 5-40 MG/DL HDL Cholesterol 46 40-60 MG/DL Physical Exam Physical Exam Vital Signs Vital Signs - First Documented 07/06/20 07/06/20 18:29 22:02 Temp 37.0 Pulse 108 Resp 18 B/P (MAP) 136/77 (96) Pulse Ox 100 O2 Delivery Room Air Capillary Refill : Less Than 3 Seconds Height, Weight, BMI Height: 5'5.00" Weight: 105lbs. 0.0oz. [id number]; 18.40 BMI Method: General Appearance: WD/WN, Anxious, Thin Eyes: Bilateral Eye Normal Inspection, Bilateral Eye PERRL, Bilateral Eye EOMI HEENT: PERRL/EOMI, Normal ENT Inspection Neck: Normal Inspection Respiratory: Lungs Clear, Normal Breath Sounds, No Accessory Muscle Use, No Respiratory Distress, Other (Upper anterior chest tender to palpation) Cardiovascular: No Edema, No Murmur, Normal Peripheral Pulses, Tachycardia Gastrointestinal: Normal Bowel Sounds, Soft, Tenderness (Slight tenderness in the epigastric area with palpation) Back: Normal Inspection, No CVA Tenderness, No Vertebral Tenderness Extremity: Normal Inspection, Non Tender, No Calf Tenderness, No Pedal Edema Neurologic/Psychiatric: Alert, Oriented x3, No Motor/Sensory Deficits, special agent II- XII Norm as Tested, Other (Anxious, normal affect) Skin: Normal Color, Warm/Dry Lymphatic: No Adenopathy A/P-Cardiology Admission Diagnosis Chest pain Hypertension Hyperlipidemia Shortness of breath Assessment/Plan Chest pain nonspecific etiology, nondiagnostic EKG changes, mild elevation in troponin. Currently chest pain-free. Could be secondary to severe hypertension that was reported as an outpatient. Had elevation in d-dimer, I will evaluate CT angiogram of the chest. Continue on Lovenox for now. Labile hypertension, reported that her blood pressure was over 200 at [facility], currently borderline hypotensive. Continue on IV fluid and monitor blood pressure Acute renal insufficiency, probably secondary to dehydration, improved after aggressive hydration. Continue to monitor Hypokalemia, I will give oral and IV potassium and monitor electrolytes Hyperlipidemia, starting on Lipitor 10 mg daily Strong family history of heart disease with multiple family members with heart disease Tobaccoism, educated on smoking cessation Migraine, managed by primary care physician Clinical Quality Measures AMI/AHF: ASA po Prior to arrival: No DVT/VTE Risk/Contraindication: Risk Factor Score Per Nursin RFS Level Per Nursing on Admit: 3=High CHAYO GUEVARA MD Jul 07, 2020 08:41
[2020-07-07] MEDS ORDERED: KCL 20 MEQ TAB (K-DUR) PO ONE (08:45)
[2020-07-07] MEDS ORDERED: REGADENOSON 0.4 MG/5 ML SYR (LEXISCAN) IV ONE (08:45)
[2020-07-07] MEDS ORDERED: NS 100 ML (IVPB) BAG IV ONE (09:15)
[2020-07-07] MEDS ORDERED: HOLD METFORMIN - RECEIVED CONTRAST 20 ML VIAL IV SCH (09:15)
[2020-07-07] MEDS ORDERED: IOHEXOL 350 MG/ML 100 ML (OMNIPAQUE 350) VIAL IV ONE (09:15)
[2020-07-07] MEDS: POTASSIUM CL 10MEQ/50ML IVPB 50 ML IV SCH ×2 (09:41→12:05)
[2020-07-07] MEDS: ASPIRIN E.C. 81 MG (ECOTRIN) TAB PO SCH (09:41)
[2020-07-07] MEDS: ENOXAPARIN 60 MG/0.6 ML (LOVENOX) SYR SC SCH ×2 (09:41→20:36)
--- NOTE | 2020-07-07 09:59 | Diagnostic Imaging Report ---
PROCEDURE: CT angiography of the chest with contrast. TECHNIQUE: Multiple contiguous axial images were obtained through the chest after uneventful bolus administration of intravenous contrast. 3D reconstructed CTA MIP acquisitions were also performed. Auto Exposure Controls were utilized during the CT exam to meet ALARA standards for radiation dose reduction. INDICATION: Chest pain. FINDINGS: The thoracic aorta is normal in caliber without evidence of dissection. There are no filling defects seen within the pulmonary arteries to suggest pulmonary embolism. Pulmonary artery is however prominent particularly compared to the aorta suggesting pulmonary arterial hypertension. There are no discrete pulmonary nodules, masses or infiltrates. There is no pleural or pericardial fluid. There is no pneumothorax. Intra-abdominal structures are grossly unremarkable. There are mild degenerative changes in the spine. IMPRESSION: 1. Prominence in the main pulmonary artery suspect for pulmonary arterial hypertension. Recommend further evaluation with echocardiography. 2. No evidence of aortic dissection or pulmonary embolism. 3. Mild degenerative changes in the spine. Dictated by: Dictated on workstation # [id number]
--- NOTE | 2020-07-07 14:04 | NUR ---
CHARLIE IN RT NOTIFIED OF NEW RT RX (DUONEB).
[2020-07-07] MEDS: RT-ALBUTEROL/IPRATROPIUM 3 ML (DUONEB) VIAL INH SCH ×2 (15:12→22:29)
[2020-07-08] MEDS: LACTATED RINGERS 1,000 ML IV SCH (03:23)
[2020-07-08 04:33] VITALS: BP 159/92
[2020-07-08 06:18] LABS: HEMOGLOBIN 12.7 g/dL (11.5-16.0); MEAN PLATELET VOLUME 9.2 fL (9.0-12.2); WHITE BLOOD COUNT 8.3 10^3/uL (4.3-11.0)
[2020-07-08 06:21] LABS: ALBUMIN 2.6 GM/DL (3.2-4.5)
[2020-07-08 06:22] LABS: CHLORIDE 102 MMOL/L (98-107); POTASSIUM 3.4 MMOL/L (3.6-5.0); SODIUM 138 MMOL/L (135-145)
[2020-07-08 06:23] LABS: CALCIUM 7.8 MG/DL (8.5-10.1)
[2020-07-08 06:24] LABS: GLUCOSE 98 MG/DL (70-105)
[2020-07-08 06:25] LABS: CARBON DIOXIDE 25 MMOL/L (21-32)
[2020-07-08 06:26] LABS: BILIRUBIN,TOTAL 0.3 MG/DL (0.1-1.0)
[2020-07-08 06:27] LABS: ALKALINE PHOSPHATASE 81 U/L (40-136)
[2020-07-08 06:28] LABS: CREATININE SERUM 0.83 MG/DL (0.60-1.30); GFR ESTIMATED > 60
[2020-07-08 06:29] LABS: BUN/CREATININE RATIO 17
[2020-07-08 06:31] LABS: ALANINE AMINOTRANSFERASE 17 U/L (0-55)
[2020-07-08] MEDS: RT-ALBUTEROL/IPRATROPIUM 3 ML (DUONEB) VIAL INH SCH (07:35)
[2020-07-08 08:00] VITALS: BP 133/85
[2020-07-08] MEDS: CATHETER FLUSH 10 ML SYR IV PRN ×2 (08:06→09:41)
[2020-07-08] MEDS ORDERED: REGADENOSON 0.4 MG/5 ML SYR (LEXISCAN) IV ONE (08:45)
[2020-07-08 09:39] VITALS: BP 160/97
[2020-07-08] MEDS: ENOXAPARIN 60 MG/0.6 ML (LOVENOX) SYR SC SCH (10:42)
[2020-07-08] MEDS: ASPIRIN E.C. 81 MG (ECOTRIN) TAB PO SCH (10:42)
[2020-07-08] MEDS ORDERED: ACET-2267 PO (11:04)
[2020-07-08] MEDS ORDERED: IBUP-16 PO (11:04)
[2020-07-08] MEDS ORDERED: LISI10TA2 PO (11:04)
--- NOTE | 2020-07-08 11:05 | NUR ---
I SPOKE WITH THE PATIENT AND WENT THROUGH THE EXTERNAL MED HISTORY TO COMPLETE THIS MED REC. OTC: MOTRIN TYLENOL EXTRA STRENGTH
--- NOTE | 2020-07-08 11:32 | Cardiology Stress Test Report ---
Stress Test Report Date of Procedure/Referring: Date of Procedure: Jul 08, 2020 PCP Zelda Joshua DO Admitting Physician Camilo Boone DO Indications: Chest pain Baseline Blood Pressure: Blood Pressure Systolic: 160 Blood Pressure Diastolic: 97 Baseline Vitals Vital Signs Date Time Temp Pulse Resp B/P (MAP) Pulse Ox O2 Delivery O2 Flow Rate FiO2 07/06/20 18:29 108 18 136/77 (96) 100 Room Air 07/06/20 22:02 37.0 Baseline EKG: Baseline EKG: normal sinus rhythm Summary After explaining the procedure to the patient, she signed a consent and then brought to the stress nuclear laboratory. Patient received 0.4 mg Lexiscan for stress test, ECG, heart rate and blood pressure were monitored continuously. Resting and stress dose of radio tracer were injected, imaging was acquired and reviewed in short axis, horizontal long axis and vertical long axis views. TID: 1.13 SSS: 2 SDS: 2 EF: 73 1. Patient tolerated Lexiscan well 2. No significant ischemia or infarction on SPECT images 3. Normal left ventricular size, EF 73 percent CHAYO GUEVARA MD Jul 08, 2020 11:32
--- NOTE | 2020-07-08 11:33 | Cardiology Progress Note ---
Subjective Date Seen by Provider: Jul 08, 2020 Time Seen by Provider: 11:32 Subjective/Events-last exam Patient was seen and evaluated, feeling well. No new complaint Review of Systems General: No Chills, No Night Sweats, No Fatigue, No Malaise, No Appetite, No Other HEENT: No Head Aches, No Visual Changes, No Eye Pain, No Ear Pain, No Dysphasia, No Sinus Congestion, No Post Nasal Drip, No Sore Throat, No Other Pulmonary: No Dyspnea, No Cough, No Pleuritic Chest Pain, No Other Cardiovascular: No: Chest Pain, Palpitations, Orthopnea, Paroxysmal Noc. Dyspnea, Edema, Lt Headedness, Other Objective-Cardiology Exam Last Set of Vital Signs Vital Signs 07/08/20 09:39 Pulse 106 Resp 16 B/P (MAP) 160/97 (118) Pulse Ox 99 O2 Delivery Room Air Capillary Refill : Less Than 3 SecondsLess Than 3 Seconds I&O Intake and Output 07/08/20 00:00 Intake Total 4470 ml Balance 4470 ml Intake Oral 1370 ml IV Total 3100 ml # Voids 7 General: Alert, Oriented X3, Cooperative HEENT: Atraumatic, PERRLA Neck: Supple, No JVD, No Thyromegaly Lungs: Clear to Auscultation, Normal Air Movement Heart: Regular Rate, Normal S1, Normal S2, No Murmurs Abdomen: Normal Bowel Sounds, Soft, No Tenderness, No Hepatosplenomegaly, No Masses Extremities: No Clubbing, No Cyanosis, No Edema, Normal Pulses, No Tenderness/Swelling Skin: No Rashes, No Breakdown, No Significant Lesion Neuro: Normal Gait, Normal Speech, Strength at 5/5 X4 Ext, Normal Tone, Sensation Intact Psych/Mental Status: Mental Status NL, Mood NL Results Lab Laboratory Tests 07/08/20 06:03 A/P-Cardiology Admission Diagnosis Chest pain Hypertension Hyperlipidemia Shortness of breath Assessment/Plan Chest pain nonspecific etiology, nondiagnostic EKG changes, mild elevation in troponin. Currently chest pain-free. Could be secondary to severe hypertension that was reported as an outpatient. CT angiogram of the chest was negative. Stress test showed no significant ischemia or infarction. Okay for discharge and follow-up as an outpatient Labile hypertension, reported that her blood pressure was over 200 at [facility], blood pressure is back to normal. Acute renal insufficiency, probably secondary to dehydration, improved after aggressive hydration. Continue to monitor Hypokalemia, I will give oral and IV potassium and monitor electrolytes Hyperlipidemia, starting on Lipitor 10 mg daily Strong family history of heart disease with multiple family members with heart disease Tobaccoism, educated on smoking cessation Migraine, managed by primary care physician Clinical Quality Measures AMI/AHF: ASA po Prior to arrival: No DVT/VTE Risk/Contraindication: Risk Factor Score Per Nursin RFS Level Per Nursing on Admit: 3=High CHAYO GUEVARA MD Jul 08, 2020 11:33
[2020-07-08] MEDS ORDERED: METO-351 PO (11:35)
[2020-07-08] MEDS ORDERED: ASPI-1238 PO (11:35)
[2020-07-08 12:00] VITALS: BP 155/85
[2020-07-08] MEDS ORDERED: ATOR10TA66 PO (12:51)
[2020-07-08] MEDS ORDERED: AMLO5TAB4 PO (12:51)
[2020-07-08] MEDS ORDERED: FAMO20TA5 PO (12:51)
--- NOTE | 2020-07-08 12:51 | Discharge Summary ---
Discharge Summary Hospital Course Was the Problem List Reviewed?: Yes Problems/Dx: (1) Chest pain Status: Acute Qualifiers: Qualified Codes: R07.9 - Chest pain, unspecified (2) Elevated troponin Status: Acute (3) D-dimer, elevated Status: Acute (4) Renal insufficiency Status: Acute (5) Anxiety Status: Acute Hospital Course Date of Admission: Jul 06, 2020 at 20:20 Admission Diagnosis : Family Physician/Provider: Camilo Boone DO Date of Discharge: 07/08/20 Discharge Diagnosis: CP, HTN, elevated troponin, normal stress test Hospital Course: Hospital course: Pt had an uneventful hospital course, she was admitted for elevated Troponin and chest pain, HTN and acute kidney injury, she was placed on IV fluid, CT angiogram showed no evidence of any PE, did show pulmonary HTN, she did undergo stress test that revealed no reversible ischemia on nuclear images, creatinine returned back to normal and she will be discharged in improved condition. Labs and Pending Lab Test: Laboratory Tests 07/08/20 06:03: White Blood Count 8.3, Red Blood Count 3.86, Hemoglobin 12.7, Hematocrit 37, Mean Corpuscular Volume 96, Mean Corpuscular Hemoglobin 33, Mean Corpuscular Hemoglobin Concent 34, Red Cell Distribution Width 13.5, Platelet Count 224, Mean Platelet Volume 9.2, Sodium Level 138, Potassium Level 3.4L, Chloride Level 102, Carbon Dioxide Level 25, Anion Gap 11, Blood Urea Nitrogen 14, Creatinine 0.83, Estimat Glomerular Filtration Rate > 60, BUN/Creatinine Ratio 17, Glucose Level 98, Calcium Level 7.8L, Corrected Calcium 8.9, Total Bilirubin 0.3, Aspartate Amino Transf (AST/SGOT) 20, Alanine Aminotransferase (ALT/SGPT) 17, Alkaline Phosphatase 81, Troponin I 0.048H, Total Protein 5.0L, Albumin 2.6L Home Meds Active Norvasc (Amlodipine Besylate) 5 Mg Tablet 5 Mg PO DAILY Famotidine 20 Mg Tablet 20 Mg PO HS Atorvastatin Calcium 10 Mg Tablet 10 Mg PO HS Toprol Xl (Metoprolol Succinate) 25 Mg Tab.er.24h 25 Mg PO DAILY Aspirin EC (Aspirin) 81 Mg Tablet.dr 81 Mg PO DAILY Reported Motrin Ib (Ibuprofen) 200 Mg Tablet 400 Mg PO Q6H TAKES 2 (200MG) TABLETS Tylenol Extra Strength (Acetaminophen) 500 Mg Tablet 500 Mg PO Q6H PRN Lisinopril 10 Mg Tablet 10 Mg PO DAILY Assessment/Pt Instructions 07/11/20 as scheduled Discharge Planning: <30 minutes discharge planning Discharge Instructions Discharge Diet: No Restrictions Discharge Physical Examination Vital Signs Vital Signs Date Time Temp Pulse Resp B/P (MAP) Pulse Ox O2 Delivery O2 Flow Rate FiO2 07/08/20 09:39 106 16 160/97 (118) 99 Room Air 07/08/20 08:00 36.3 General Appearance: No Apparent Distress, WD/WN, Chronically ill Respiratory: Chest Non Tender, Lungs Clear, Normal Breath Sounds, No Accessory Muscle Use, No Respiratory Distress Cardiovascular: Regular Rate, Rhythm, No Edema, No Gallop, No JVD, No Murmur, Normal Peripheral Pulses Allergies: Coded Allergies: NKANo Known Allergies (Verified Allergy, Unknown, 09/15/06) Discharge Summary Date of Admission Jul 06, 2020 at 20:20 Date of Discharge Discharge Date: Jul 08, 2020 Admission Diagnosis Assessment: Chest pain Elevated troponin ANUPAMA Smoker Crackles on exam HTN HLP Plan: IVF Stress test tomorrow Statin Discharge Diagnosis (1) Chest pain Status: Acute Qualifiers: Qualified Codes: R07.9 - Chest pain, unspecified (2) Elevated troponin Status: Acute (3) D-dimer, elevated Status: Acute (4) Renal insufficiency Status: Acute (5) Anxiety Status: Acute Clinical Quality Measures AMI/AHF: ASA po Prior to arrival: No DVT/VTE Risk/Contraindication: Risk Factor Score Per Nursin RFS Level Per Nursing on Admit: 3=High KATARZYNA CANDELARIA DO Jul 08, 2020 12:51
[2020-07-08] MEDS ORDERED: amLODIPine 5 MG (NORVASC) TAB PO NR (13:00)
[2020-07-08 13:30] VITALS: BP 160/97
== END 2020-07-08 13:30 | disposition home or self-care (01) ==
LOC: EDUNIT# 18:21 → ER 18:22 → 4TH 20:20
PROVIDERS: ADMIT Internal Medicine; ATTEND Internal Medicine
DX: R07.9 Chest pain, unspecified (principal); R77.8 Other specified abnormalities of plasma proteins; F41.9 Anxiety disorder, unspecified; N17.9 Acute kidney failure, unspecified; I10 Essential (primary) hypertension; E78.5 Hyperlipidemia, unspecified; E78.00 Pure hypercholesterolemia, unspecified; G89.29 Other chronic pain; M54.5 Low back pain; F32.9 Major depressive disorder, single episode, unspecified; E87.6 Hypokalemia; F17.210 Nicotine dependence, cigarettes, uncomplicated; Z79.82 Long term (current) use of aspirin; Z79.899 Other long term (current) drug therapy; Z90.710 Acquired absence of both cervix and uterus
CPT/HCPCS: 71045; 71275; 78452; 80053 ×3; 80061; 83735; 83874; 84484 ×3; 85025 ×2; 85027; 85379; 85610; 85652; 85730; 86141; 93005 ×2; 93017; 93041; 93306; 94640 ×2; 94760; 99284; A9502; 36415; 90686; G0378

== ENCOUNTER 2021-01-14 17:20 | Inpatient (IN) | payer MEDICAID ==
[~2021-01-14] VITALS: Ht 165.1 cm; Wt 51.2 kg
[~2021-01-14 17:20] MED LIST changes: +ACET-2267 PO; +AMLO5TAB4 PO; +ASPI-1238 PO; +ATOR10TA66 PO; +FAMO20TA5 PO; +IBUP-16 PO; +LISI10TA25 PO; +METO-351 PO
[2021-01-14] MEDS ORDERED: AMLO-251 PO (18:54)
[2021-01-14] MEDS ORDERED: FURO20TA4 PO (18:54)
[2021-01-14] MEDS ORDERED: MTP25TSR PO (18:54)
[2021-01-14] MEDS ORDERED: ATOR10TA66 PO (18:54)
[2021-01-14] MEDS ORDERED: CATHETER FLUSH 10 ML SYR IV PRN (19:15)
[2021-01-14] MEDS: FUROSEMIDE 40 MG/4 ML INJ (LASIX) IV SCH (19:35)
[2021-01-14] MEDS: CATHETER FLUSH 10 ML SYR IV SCH (19:35)
[2021-01-14 19:36] LABS: BASOPHILS # (AUTO) 0.1 10^3/uL (0.0-0.1); BASOPHILS % (AUTO) 1 % (0-10); EOSINOPHILS # (AUTO) 0.1 10^3/uL (0.0-0.3); EOSINOPHILS % (AUTO) 1 % (0-10); HEMATOCRIT 33 % (35-52); HEMOGLOBIN 11.4 g/dL (11.5-16.0); LYMPHOCYTES # (AUTO) 1.4 10^3/uL (1.0-4.0); LYMPHOCYTES % (AUTO) 14 % (12-44); MEAN CORPUSCULAR HEMOGLOBIN 32 pg (25-34); MEAN CORPUSCULAR HGB CONC 34 g/dL (32-36); MEAN CORPUSCULAR VOLUME 93 fL (80-99); MONOCYTES # (AUTO) 0.9 10^3/uL (0.0-1.0); MONOCYTES % (AUTO) 9 % (0-12); NEUTROPHILS # (AUTO) 7.8 10^3/uL (1.8-7.8); NEUTROPHILS % (AUTO) 76 % (42-75); PLATELET COUNT 356 10^3/uL (130-400); WHITE BLOOD COUNT 10.2 10^3/uL (4.3-11.0)
[2021-01-14 19:54] LABS: ALANINE AMINOTRANSFERASE 29 U/L (0-55); ALBUMIN 2.9 GM/DL (3.2-4.5); ALKALINE PHOSPHATASE 121 U/L (40-136); BILIRUBIN,TOTAL 0.4 MG/DL (0.1-1.0); BUN/CREATININE RATIO 8; CALCIUM 8.7 MG/DL (8.5-10.1); CARBON DIOXIDE 26 MMOL/L (21-32); CHLORIDE 98 MMOL/L (98-107); CREATININE SERUM 2.13 MG/DL (0.60-1.30); GFR ESTIMATED 24; GLUCOSE 109 MG/DL (70-105); POTASSIUM 2.9 MMOL/L (3.6-5.0); SODIUM 135 MMOL/L (135-145); TOTAL PROTEIN 5.8 GM/DL (6.4-8.2)
[2021-01-14 20:54] VITALS: BP 147/101
[2021-01-14] MEDS ORDERED: RT-ALBUTEROL/IPRATROPIUM 3 ML (DUONEB) VIAL INH PRN (21:00)
[2021-01-14] MEDS ORDERED: KCL 20 MEQ TAB (K-DUR) PO ONE ×2 (21:15→23:15)
--- NOTE | 2021-01-14 21:20 | History & Physical ---
HPI History of Present Illness: 55 yo F with shortness of breath and chest pressure that started last wednesday. States that she was seen in walkin care on wednesday and was started on lasix daily since wednesday. Her swelling and chest pressure has resolved since starting the lasix but she is still having shortness of breath and some swelling. Denies any previous heart conditions. Denies any stents or previous NM. States that she was in the hospital late last year for similar concerns and see Dr Mauro. States that she saw him shortly after that admission and he has not changed any medications. Denies any sick contacts. She has completed her covid vaccines. She stopped smoking 1 week ago. Source: patient Exam Limitations: no limitations Date seen by provider: Jan 14, 2021 Time Seen by Provider: 19:15 Attending Physician Xenia Garza MD PCP [facility] Consult Date of Admission Jan 14, 2021 at 18:17 Home Medications Home Medications Reviewed patient Home Medication Reconciliation performed by pharmacy medication reconciliations weatherization technician and/or nursing. Patients Allergies have been reviewed. Allergies Coded Allergies: NKANo Known Allergies (Verified Allergy, Unknown, 09/15/06) [id number] Hx Patient Social History Smoking Status: Former Smoker (quit 1 week ago) Alcohol Use?: No Substance type: Marijuana Tobacco type used: Cigarettes Have you traveled recently?: No Immunizations Up To Date Date of Influenza Vaccine: Jun 28, 2021 Past Medical History HTN COPD Tobacco Abuse HLD Family Medical History Significant Family History: No Pertinent Family Hx Family History: Alcoholism 19 MOTHER, Onset:15's - 20 G8 BROTHER, Onset:15's - 20 Arthritis 19 FATHER Asthma 19 MOTHER Cardiovascular disease 19 FATHER, Onset:25's - 30 19 MOTHER Completed stroke G8 BROTHER, Onset:40's - 50 Congenital heart disease 19 MOTHER Deafness or hearing loss 19 FATHER Diabetes mellitus 19 FATHER, Onset:30's - 40 Drug abuse 19 MOTHER, Onset:20's - 25 Headache disorder 19 FATHER Hypertension 19 FATHER G8 BROTHER G8 SISTER Myocardial infarction 19 FATHER Respiratory disorder 19 MOTHER, Onset:50's - 60 Seizure disorder G8 SISTER Severe allergy 19 MOTHER Tuberculosis 19 MOTHER Review of Systems (CHC) Constitutional: No chills, No fever; malaise EENTM: no symptoms reported; No nose congestion, No throat pain Respiratory: dyspnea on exertion, short of breath, wheezing Cardiovascular: chest pain, edema; No palpitations Gastrointestinal: no symptoms reported; No abdominal pain, No constipation, No diarrhea, No nausea, No vomiting Genitourinary: No dysuria; frequency; No hematuria : No Musculoskeletal: no symptoms reported; No back pain, No joint pain, No muscle pain Skin: no symptoms reported; No lesions, No rash Psychiatric/Neurological: Denies Anxiety, Denies Depressed Reviewed Test Results Reviewed Test Results Lab Laboratory Tests Test 01/14/21 19:18 Range/Units White Blood Count 10.2 4.3-11.0 10^3/uL Red Blood Count 3.57 L 3.80-5.11 10^6/uL Hemoglobin 11.4 L 11.5-16.0 g/dL Hematocrit 33 L 35-52 % Mean Corpuscular Volume 93 80-99 fL Mean Corpuscular Hemoglobin 32 25-34 pg Mean Corpuscular Hemoglobin Concent 34 32-36 g/dL Red Cell Distribution Width 13.5 10.0-14.5 % Platelet Count 356 130-400 10^3/uL Mean Platelet Volume 9.0 9.0-12.2 fL Immature Granulocyte % (Auto) 0 % Neutrophils (%) (Auto) 76 H 42-75 % Lymphocytes (%) (Auto) 14 12-44 % Monocytes (%) (Auto) 9 0-12 % Eosinophils (%) (Auto) 1 0-10 % Basophils (%) (Auto) 1 0-10 % Neutrophils # (Auto) 7.8 1.8-7.8 10^3/uL Lymphocytes # (Auto) 1.4 1.0-4.0 10^3/uL Monocytes # (Auto) 0.9 0.0-1.0 10^3/uL Eosinophils # (Auto) 0.1 0.0-0.3 10^3/uL Basophils # (Auto) 0.1 0.0-0.1 10^3/uL Immature Granulocyte # (Auto) 0.0 0.0-0.1 10^3/uL Sodium Level 135 135-145 MMOL/L Potassium Level 2.9 L 3.6-5.0 MMOL/L Chloride Level 98 98-107 MMOL/L Carbon Dioxide Level 26 21-32 MMOL/L Anion Gap 11 5-14 MMOL/L Blood Urea Nitrogen 16 7-18 MG/DL Creatinine 2.13 H 0.60-1.30 MG/DL Estimat Glomerular Filtration Rate 24 BUN/Creatinine Ratio 8 Glucose Level 109 H 70-105 MG/DL Calcium Level 8.7 8.5-10.1 MG/DL Corrected Calcium 9.6 8.5-10.1 MG/DL Total Bilirubin 0.4 0.1-1.0 MG/DL Aspartate Amino Transf (AST/SGOT) 22 5-34 U/L Alanine Aminotransferase (ALT/SGPT) 29 0-55 U/L Alkaline Phosphatase 121 40-136 U/L Troponin I < 0.028 <0.028 NG/ML Total Protein 5.8 L 6.4-8.2 GM/DL Albumin 2.9 L 3.2-4.5 GM/DL Physical Exam[facility] Physical Exam Vital Signs VS - Last 72 Hours, by Label 01/14/21 01/14/21 01/14/21 01/14/21 18:34 18:45 18:48 19:25 Temp 37.2 Pulse 102 101 105 Resp 16 B/P (MAP) 147/101 (116) Pulse Ox 96 97 O2 Delivery Room Air Room Air 01/14/21 20:54 Pulse 107 Pulse Ox 97 FiO2 21 Capillary Refill : General Appearance: mild distress (moderate distress with minimal activity) HEENT: PERRL/EOMI Neck: non-tender, full range of motion, supple Respiratory: chest non-tender, no accessory muscle use, decreased breath sounds, wheezing Cardiovascular: normal peripheral pulses, regular rate, rhythm, no edema, systolic murmur Gastrointestinal: normal bowel sounds, non tender, soft, no organomegaly Back: no CVA tenderness, no vertebral tenderness Extremities: normal range of motion, non-tender, no calf tenderness, pedal edema (2+ pitting edema) Neurologic/Psychiatric: honey producer II-XII nml as tested, no motor/sensory deficits, alert, normal mood/affect, oriented x 3 Skin: normal color, warm/dry Lymphatic: no adenopathy Assessment/Plan Assessment/Plan Admission Status: Inpatient Order (span 2 midnights) Reason for Inpatient Admission: need for cardiology consult and IV lasix (1) Acute and chronic respiratory failure with hypoxia Status: Acute Assessment & Plan: - MAT protocol, titrate oxygen as possible, CHF vs COPD e xacerbation, Cardiology consult appreciate recommendations (2) COPD exacerbation Status: Acute (3) Acute kidney failure Status: Acute Assessment & Plan: - Gentle IVFs, continue to monitor daily BMPs Qualifiers: Qualified Codes: N17.9 - Acute kidney failure, unspecified (4) Hypokalemia Status: Acute Assessment & Plan: - Replacement protocol (5) Tobacco abuse Status: Acute Assessment & Plan: - Continue to focus on cessation (6) DVT prophylaxis Status: Acute Assessment & Plan: - Lovenox renal dosing Copy Copies To 1: CINDA LEBLANC MD, HOLLY R MD Jan 14, 2021 21:20
[2021-01-14] MEDS: methylPREDNISolone 40 MG/ML (Solu-MEDROL) VIAL IV SCH (22:10)
[2021-01-15] MEDS ORDERED: KCL 20 MEQ TAB (K-DUR) PO ONE ×2 (01:15→09:00)
[2021-01-15 04:03] LABS: BASOPHILS # (AUTO) 0.1 10^3/uL (0.0-0.1); BASOPHILS % (AUTO) 1 % (0-10); EOSINOPHILS % (AUTO) 0 % (0-10); HEMATOCRIT 35 % (35-52); HEMOGLOBIN 11.8 g/dL (11.5-16.0); LYMPHOCYTES # (AUTO) 0.8 10^3/uL (1.0-4.0); LYMPHOCYTES % (AUTO) 9 % (12-44); MEAN CORPUSCULAR HEMOGLOBIN 32 pg (25-34); MEAN CORPUSCULAR HGB CONC 34 g/dL (32-36); MEAN CORPUSCULAR VOLUME 93 fL (80-99); MEAN PLATELET VOLUME 9.2 fL (9.0-12.2); MONOCYTES # (AUTO) 0.2 10^3/uL (0.0-1.0); MONOCYTES % (AUTO) 3 % (0-12); NEUTROPHILS # (AUTO) 7.9 10^3/uL (1.8-7.8); NEUTROPHILS % (AUTO) 87 % (42-75); PLATELET COUNT 332 10^3/uL (130-400)
[2021-01-15 04:14] LABS: POTASSIUM 3.6 MMOL/L (3.6-5.0)
[2021-01-15 04:15] LABS: CALCIUM 8.8 MG/DL (8.5-10.1)
[2021-01-15 04:19] LABS: CREATININE SERUM 2.06 MG/DL (0.60-1.30)
[2021-01-15 04:25] LABS: LYMPHOCYTES % (MANUAL) 11 %; MONOCYTES % (MANUAL) 6 %; NEUTROPHILS % (MANUAL) 83 %
[2021-01-15 04:26] LABS: RBC MORPH NORMAL
[2021-01-15] MEDS: CATHETER FLUSH 10 ML SYR IV SCH (05:43)
[2021-01-15] MEDS ORDERED: MAGNESIUM 1 GM/100 ML IVPB 100 ML IV SCH (06:00)
[2021-01-15] MEDS ORDERED: KCL 20 MEQ TAB (K-DUR) PO SCH (06:00)
[2021-01-15] MEDS ORDERED: POTASSIUM CL 10MEQ/50ML IVPB 50 ML IV SCH (06:00)
--- NOTE | 2021-01-15 08:02 | Diagnostic Imaging Report ---
INDICATION: Shortness of breath, congestion with cough. Comparison made with prior examination from 07/06/2020. FINDINGS: There is cardiomegaly and mild venous congestion. There are patchy bibasal infiltrates. There are small bilateral pleural effusions. Air trapping compatible with COPD. There is no pneumothorax. The mediastinum is unremarkable. IMPRESSION: COPD with patchy bibasal infiltrates and small bilateral pleural effusions. Cardiomegaly and some mild central pulmonary venous congestion. Dictated by: Dictated on workstation # [id number]
[2021-01-15] MEDS: FUROSEMIDE 40 MG/4 ML INJ (LASIX) IV SCH (08:56)
[2021-01-15] MEDS: methylPREDNISolone 40 MG/ML (Solu-MEDROL) VIAL IV SCH (08:56)
--- NOTE | 2021-01-15 08:59 | Consultation-Cardiology ---
HPI-Cardiology Cardiology Consultation Date of Consultation 01/15/21 Date of Admission Time Seen by Provider: 19:15 Indication: Dyspnea, elevated BNP HPI Patient is a 55 y/o female with history of labile HTN, tobaccoism, presented with complaints of chest pain and dypsnea increasing over the past week. Reports improvement in dyspnea after starting Lasix. Denies any active chest pain, denies dizziness lightheadedness or syncope. 55-year-old lady with history of hypertension, diastolic dysfunction, mild pulmonary hypertension. Has been having increasing shortness of breath, worsening pedal edema, bilateral pleural effusion, seen by Dr. Ramirez yesterday and referred for direct admission due to her congestive heart failure and renal insufficiency. On my evaluation this morning she is feeling better, her breathing is better, her edema is better. Responded to IV Lasix. Home Medications & Allergies Allergies: Coded Allergies: NKANo Known Allergies (Verified Allergy, Unknown, 09/15/06) Home Medication List Reviewed: Yes Medication list reviewed CKQ-Jouola-Zycigt Hx Patient Social History Smoking Status: Former Smoker (quit 1 week ago) Have you traveled recently?: No Alcohol Use?: No Substance type: Marijuana Immunizations Up To Date Date of Influenza Vaccine: Jun 28, 2021 Past Medical History HTN, tobaccoism Family Medical History Significant Family History: No Pertinent Family Hx Family History: Alcoholism 19 MOTHER, Onset:15's - 20 G8 BROTHER, Onset:15's - 20 Arthritis 19 FATHER Asthma 19 MOTHER Cardiovascular disease 19 FATHER, Onset:25's - 30 19 MOTHER Completed stroke G8 BROTHER, Onset:40's - 50 Congenital heart disease 19 MOTHER Deafness or hearing loss 19 FATHER Diabetes mellitus 19 FATHER, Onset:30's - 40 Drug abuse 19 MOTHER, Onset:20's - 25 Headache disorder 19 FATHER Hypertension 19 FATHER G8 BROTHER G8 SISTER Myocardial infarction 19 FATHER Respiratory disorder 19 MOTHER, Onset:50's - 60 Seizure disorder G8 SISTER Severe allergy 19 MOTHER Tuberculosis 19 MOTHER Review of Systems-General Review of Systems Constitutional: see HPI; No chills, No fever; malaise EENTM: see HPI, no symptoms reported; No nose congestion, No throat pain Respiratory: see HPI, dyspnea on exertion, short of breath, wheezing Cardiovascular: chest pain, edema; No palpitations Gastrointestinal: no symptoms reported, see HPI; No abdominal pain, No constipation, No diarrhea, No nausea, No vomiting Genitourinary: see HPI; No dysuria; frequency; No hematuria : No Musculoskeletal: no symptoms reported, see HPI; No back pain, No joint pain, No muscle pain Skin: no symptoms reported; No lesions, No rash Psychiatric/Neurological: Denies Anxiety, Denies Depressed Reviewed Test Results Reviewed Test Results Lab Laboratory Tests 01/14/21 19:18: White Blood Count 10.2, Red Blood Count 3.57L, Hemoglobin 11.4L, Hematocrit 33L, Mean Corpuscular Volume 93, Mean Corpuscular Hemoglobin 32, Mean Corpuscular Hemoglobin Concent 34, Red Cell Distribution Width 13.5, Platelet Count 356, Mean Platelet Volume 9.0, Immature Granulocyte % (Auto) 0, Neutrophils (%) (Auto) 76H, Lymphocytes (%) (Auto) 14, Monocytes (%) (Auto) 9, Eosinophils (%) (Auto) 1, Basophils (%) (Auto) 1, Neutrophils # (Auto) 7.8, Lymphocytes # (Auto) 1.4, Monocytes # (Auto) 0.9, Eosinophils # (Auto) 0.1, Basophils # (Auto) 0.1, Immature Granulocyte # (Auto) 0.0, Sodium Level 135, Potassium Level 2.9L, Chloride Level 98, Carbon Dioxide Level 26, Anion Gap 11, Blood Urea Nitrogen 16, Creatinine 2.13H, Estimat Glomerular Filtration Rate 24, BUN/Creatinine Ratio 8, Glucose Level 109H, Calcium Level 8.7, Corrected Calcium 9.6, Total Bilirubin 0.4, Aspartate Amino Transf (AST/SGOT) 22, Alanine Aminotransferase (ALT/SGPT) 29, Alkaline Phosphatase 121, Troponin I < 0.028, Total Protein 5.8L, Albumin 2.9L 01/15/21 03:25: White Blood Count 9.0, Red Blood Count 3.73L, Hemoglobin 11.8, Hematocrit 35, Mean Corpuscular Volume 93, Mean Corpuscular Hemoglobin 32, Mean Corpuscular Hemoglobin Concent 34, Red Cell Distribution Width 13.6, Platelet Count 332, Mean Platelet Volume 9.2, Immature Granulocyte % (Auto) 0, Neutrophils (%) (Auto) 87H, Lymphocytes (%) (Auto) 9L, Monocytes (%) (Auto) 3, Eosinophils (%) (Auto) 0, Basophils (%) (Auto) 1, Neutrophils # (Auto) 7.9H, Lymphocytes # (Auto) 0.8L, Monocytes # (Auto) 0.2, Eosinophils # (Auto) 0.0, Basophils # (Auto) 0.1, Immature Granulocyte # (Auto) 0.0, Sodium Level 138, Potassium Level 3.6, Chloride Level 100, Carbon Dioxide Level 24, Anion Gap 14, Blood Urea Nitrogen 17, Creatinine 2.06H, Estimat Glomerular Filtration Rate 25, BUN/Creatinine Ratio 8, Glucose Level 134H, Calcium Level 8.8, Neutrophils % (Manual) 83, Lymphocytes % (Manual) 11, Monocytes % (Manual) 6, Blood Morphology Comment NORMAL, Magnesium Level 2.0, B-Type Natriuretic Peptide 477.4H ECG Impression ECG Initial ECG Rhythm: S.Tach Physical Exam Physical Exam Vital Signs Vital Signs - First Documented 01/14/21 01/14/21 01/14/21 01/14/21 18:34 18:45 18:48 20:54 Temp 37.2 Pulse 102 Resp 16 B/P (MAP) 147/101 (116) Pulse Ox 96 O2 Delivery Room Air FiO2 21 Capillary Refill : Height, Weight, BMI Height: 5'5.00" Weight: 105lbs. 0.0oz. 47.622648sg; 18.78 BMI Method: General Appearance: No Apparent Distress, WD/WN HEENT: TMs Normal Neck: Full Range of Motion, Non Tender Respiratory: Chest Non Tender, Crackles, Wheezing Cardiovascular: No Edema, Tachycardia Gastrointestinal: No Pulsatile Mass, Non Tender A/P-Cardiology Admission Diagnosis Chest pain Dyspnea Elevated BNP HTN Assessment/Plan Chest pain nonspecific etiology, nondiagnostic EKG changes, initial troponin mildly elevated. Repeat troponin negative. Currently chest pain-free. Stress test done June 2020 revealing no ischemia or infarct. Dyspnea on exertion, elevated BNP, responding to Lasix. Echo done June 2020 with normal EF, mild HTN. I will reevaluate 2D Echo. Will change Lasix to oral. Labile hypertension, restart home blood pressure medications and continue to monitor Acute on chronic renal insufficiency, continue to monitor renal function. Recommend f/u with nephrology as outpatient. Hypokalemia, replace and continue to monitor. Hyperlipidemia, continue to monitor as outpatient. Strong family history of heart disease with multiple family members with heart disease ExTobaccoism, patient quit smoking 6 days ago. Encouraged to continue with smoking cessation. OK for discharge from cardiology standpoint. F/u as outpatient. Thank you for allowing us to participate in the management of Ms. Griffith. This is Janny Workman PA-C, as a scribe for Dr. Mauro. Patient was seen and evaluated with Janny, discussed the management plan, performed physical examination, interviewed the patient and agree with the current scribed note Patient is reporting improvement in shortness of breath, her edema has resolved. 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 Greg HSIEH,JANNY OG Jan 15, 2021 08:59 CHAYO MAURO MD Jan 15, 2021 09:49
[2021-01-15] MEDS ORDERED: amLODIPine 10 MG (NORVASC) TAB PO SCH (09:00)
[2021-01-15] MEDS ORDERED: ASPIRIN 81 MG CHEW (CHILDREN'S ASA) PO SCH (09:00)
[2021-01-15] MEDS ORDERED: PHARMACY TO DOSE SQ SCH (09:00)
[2021-01-15] MEDS ORDERED: ENOXAPARIN 30 MG/0.3 ML (LOVENOX) SYR SC SCH (09:00)
[2021-01-15] MEDS ORDERED: FUROSEMIDE 40 MG/4 ML INJ (LASIX) IVP ONE (09:15)
[2021-01-15] MEDS ORDERED: FURO20TA4 PO (12:05)
[2021-01-15] MEDS ORDERED: ATOR10TA66 PO (12:05)
[2021-01-15] MEDS ORDERED: MTP25TSR PO (12:05)
[2021-01-15] MEDS ORDERED: AMLO-251 PO (12:05)
--- NOTE | 2021-01-15 12:21 | Discharge Summary ---
Diagnosis/Chief Complaint Date of Admission Jan 14, 2021 at 18:17 Date of Discharge Discharge Diagnosis Problems/Diagnosis: (1) Acute and chronic respiratory failure with hypoxia Assessment & Plan: - MAT protocol, titrate oxygen as possible, CHF vs COPD exacerbation, Cardiology consult appreciate recommendations Status: Acute (2) COPD exacerbation Status: Acute (3) Acute kidney failure Assessment & Plan: - Gentle IVFs, continue to monitor daily BMPs Qualifiers: Qualified Codes: N17.9 - Acute kidney failure, unspecified Status: Acute (4) Hypokalemia Assessment & Plan: - Replacement protocol Status: Acute (5) Tobacco abuse Assessment & Plan: - Continue to focus on cessation Status: Acute (6) DVT prophylaxis Assessment & Plan: - Lovenox renal dosing Status: Acute Chief Complaint/HPI Chief Complaint/HPI 55 yo F with shortness of breath and chest pressure that started last wednesday. States that she was seen in walkin care on wednesday and was started on lasix daily since wednesday. Her swelling and chest pressure has resolved since starting the lasix but she is still having shortness of breath and some swelling. Denies any previous heart conditions. Denies any stents or previous CO. States that she was in the hospital late last year for similar concerns and see Dr Mauro. States that she saw him shortly after that admission and he has not changed any medications. Denies any sick contacts. She has completed her covid vaccines. She stopped smoking 1 week ago. Discharge Summary-Simple/Stand Consultations Discharge Physical Examination Allergies: Coded Allergies: NKANo Known Allergies (Verified Allergy, Unknown, 09/15/06) Vitals & I&Os Vital Sign - Last 12Hours Date Time Temp Pulse Resp B/P (MAP) Pulse Ox O2 Delivery O2 Flow Rate FiO2 01/15/21 11:45 37.4 84 20 141/101 (114) 93 Room Air 01/14/21 20:54 21 Intake and Output 01/15/21 00:00 Intake Total 200 ml Output Total 900 ml Balance -700 ml Hospital Course See final discharge diagnosis. Discharge Instructions to patient/family Please see electronic discharge instructions given to patient. Discharge Medications Reviewed and agree with Discharge Medication list on patient's Discharge Instruction sheet GINA BERNARD MD Jan 15, 2021 12:21
[2021-01-15] MEDS ORDERED: ASPI81TA64 PO (12:23)
[2021-01-15] MEDS ORDERED: POTA10CA43 PO (12:23)
[2021-01-15] MEDS ORDERED: FURO-125 PO (12:23)
[2021-01-15] MEDS ORDERED: PRD20T PO (12:23)
--- NOTE | 2021-01-15 12:24 | Discharge Summary ---
Discharge [facility] Reconcile Patient Problems Problems Reviewed?: Yes Discharge Medications New, Converted or Re-Newed RX: Transmitted to Pharmacy New Medications: Furosemide (Lasix) 20 Mg Tablet 20 MG PO DAILY, #30 TAB Potassium Chloride (Potassium Chloride) 10 Meq Capsule.er 10 MEQ PO DAILY, #30 CAP Prednisone (Prednisone) 20 Mg Tab 20 MG PO DAILY, #7 TAB Aspirin (Children's Aspirin) 81 Mg Tab.chew 81 MG PO DAILY@0900, #30 TAB Continued Medications: Acetaminophen (Tylenol Extra Strength) 500 Mg Tablet 500 MG PO Q6H PRN for PAIN-MILD (1-4), TAB Amlodipine Besylate (Amlodipine Besylate) 10 Mg Tablet 10 MG PO DAILY, TAB Atorvastatin Calcium (Atorvastatin Calcium) 10 Mg Tablet 10 MG PO HS, TAB LAST FILLED 08-08-2021 #90/90 DAY SUPPLY Metoprolol Succinate (Metoprolol Succinate) 25 Mg Tab.er.24h 25 MG PO DAILY, TAB Discontinued Medications: Furosemide (Furosemide) 20 Mg Tablet 20 MG PO DAILY, TAB FILLED 01-10-2021 #7/7 DAY SUPPLY Patient Instructions Goal/Follow Up Appt: F/u with PCP 1-2 weeks Activity & Diet Discharge Diet: Cardiac Diet Activity as Tolerated: Yes Copy Copies To 1: CINDA LEBLANC MD, HOLLY R MD Jan 15, 2021 12:24
[2021-01-15] MEDS ORDERED: CALCIUM CARBONATE 500 MG (TUMS) TAB.CHEW PO PRN (12:30)
[2021-01-15] MEDS ORDERED: ATORVASTATIN 10 MG TABLET PO SCH (21:00)
== END 2021-01-15 14:35 | disposition home or self-care (01) | DRG 291 ==
LOC: CSD 18:17
PROVIDERS: ADMIT Family Medicine; ATTEND Family Medicine
DX: I13.0 Hypertensive heart and chronic kidney disease with heart failure and stage 1 through stage 4 chronic kidney disease, or unspecified chronic kidney disease (principal); J96.21 Acute and chronic respiratory failure with hypoxia; I50.31 Acute diastolic (congestive) heart failure; N17.9 Acute kidney failure, unspecified; J44.1 Chronic obstructive pulmonary disease with (acute) exacerbation; F17.210 Nicotine dependence, cigarettes, uncomplicated; N18.30 Chronic kidney disease, stage 3 unspecified; E78.5 Hyperlipidemia, unspecified; E87.6 Hypokalemia; I27.20 Pulmonary hypertension, unspecified; Z82.49 Family history of ischemic heart disease and other diseases of the circulatory system
CPT/HCPCS: 36415; 71045; 80048; 80053; 83735; 83880; 84484; 85007; 85025; 85027; 93005; 93306

== ENCOUNTER → 2021-05-14 | Outpatient (CLI) | payer MEDICAID ==
[~2021-05-14] MED LIST changes: +AMLO-251 PO; +ASPI81TA64 PO; +FURO-125 PO; +FURO20TA4 PO; +MTP25TSR PO; +POTA10CA43 PO; +PRD20T PO
--- NOTE | 2021-05-14 16:09 | Diagnostic Imaging Report ---
EXAMINATION: Chest 2 view. HISTORY: Tuberculosis. COMPARISON: 01/15/2021. FINDINGS: There is mild septal line thickening consistent with edema. No pleural effusion or pneumothorax. No consolidation. No cavitary nodule. Heart size is mildly enlarged. IMPRESSION: Mild edema, no evidence of active tuberculosis. Dictated by: Dictated on workstation # [id number]
== END ==
LOC: RAD 14:29
PROVIDERS: ATTEND Internal Medicine Nephrology
DX: R76.11 Nonspecific reaction to tuberculin skin test without active tuberculosis (principal)
CPT/HCPCS: 71046

== ENCOUNTER → 2022-01-06 | Outpatient (RCR) | payer MEDICAID ==
[2021-12-30 09:35] VITALS: BP 125/81
[2021-12-30] MEDS: FERRIC CARBOXYMALTOSE INJ 750 MG in NS (IVPB) 250 ML IV SCH (10:21)
[~2022-01-06] VITALS: Wt 51.2 kg
[2022-01-06 13:00] VITALS: BP 103/77
[2022-01-06] MEDS: FERRIC CARBOXYMALTOSE INJ 750 MG in NS (IVPB) 250 ML IV SCH (13:14)
== END | disposition home or self-care (01) ==
LOC: SDC 12-30 09:26
PROVIDERS: ATTEND Internal Medicine Nephrology
DX: N18.5 Chronic kidney disease, stage 5 (principal); D63.1 Anemia in chronic kidney disease; D50.8 Other iron deficiency anemias
CPT/HCPCS: 96365

== ENCOUNTER → 2022-02-25 | Outpatient (CLI) | payer MEDICAID ==
--- NOTE | 2022-02-25 10:37 | Diagnostic Imaging Report ---
INDICATION: Shortness of breath. Time of Exam: 1009 AM Correlation is made with prior chest from 05/14/2021. The heart is enlarged. Patient has developed bibasilar infiltrates and bilateral effusions. Mid and upper lung monet are clear. There is no pneumothorax. IMPRESSION: Development of bibasilar pulmonary infiltrates and small bilateral pleural effusions. Dictated by: Dictated on workstation # [id number]
== END ==
LOC: RAD 09:32
PROVIDERS: ATTEND Internal Medicine Nephrology
DX: J90 Pleural effusion, not elsewhere classified (principal); N18.6 End stage renal disease; R91.8 Other nonspecific abnormal finding of lung field
CPT/HCPCS: 36415; 71046; 87340

== ENCOUNTER → 2022-02-26 | Outpatient (CLI) | payer MEDICAID | LOC: PREOP 14:27 | PROVIDERS: ATTEND Surgery | DX: Z01.818 Encounter for other preprocedural examination (principal); Z49.01 Encounter for fitting and adjustment of extracorporeal dialysis catheter ==

== ENCOUNTER 2022-03-02 10:34 | Day surgery (SDC) | payer MEDICAID ==
[~2022-03-02] VITALS: Ht 165 cm; Wt 56.0 kg
[2022-03-02] VITALS (10 sets, daily range): BP systolic 115–177; BP diastolic 52–89
[2022-03-02] MEDS ORDERED: NS IV 500 ML 500 ML IV PRN (10:45)
[2022-03-02] MEDS ORDERED: ceFAZolin 2 GM IV Premixed 50 ML IV ONE (10:45)
[2022-03-02] MEDS ORDERED: LIDOCAINE/EPI 2% 1:200,00 (XYLOCAINE) 20 ML VIAL ONE (11:06)
[2022-03-02] MEDS ORDERED: 0.9% SODIUM CHLORIDE PF INJ 20 ML VIAL ONE (11:06)
[2022-03-02] MEDS ORDERED: HEParin (CENTRAL IV FLUSH) 500 UNIT/5 ML SYR ONE (11:07)
[2022-03-02 11:21] LABS: CALCIUM 6.9 MG/DL (8.5-10.1); CREATININE SERUM 4.97 MG/DL (0.60-1.30); POTASSIUM 3.7 MMOL/L (3.6-5.0)
--- NOTE | 2022-03-02 12:18 | Progress Note-Pre Operative ---
Pre-Operative Progress Note H&P Reviewed The H&P was reviewed, patient examined and no changes noted. Date Seen by Provider: Mar 02, 2022 Time Seen by Provider: 12:18 Date H&P Reviewed: Mar 02, 2022 Time H&P Reviewed: 12:18 Pre-Operative Diagnosis: end stage renal failure ABBY ZARATE DO Mar 02, 2022 12:18
[2022-03-02] MEDS ORDERED: PROPOFOL INJECTION 50 ML IV ONE (13:45)
[2022-03-02] MEDS ORDERED: MIDAZOLAM 2 MG/2 ML (VERSED) VIAL ONE (13:46)
[2022-03-02] MEDS ORDERED: PHENYLEPHRINE 100 MCG/ML 10 ML (ANESTHESIA) SYR ONE (14:26)
[2022-03-02] MEDS ORDERED: SEVOFLURANE (ULTANE) 15 ML INHAL SOLN ONE (14:57)
[2022-03-02] MEDS ORDERED: ONDANSETRON 4 MG/2 ML (SDV) Z0FRAN IVP PRN (15:15)
[2022-03-02] MEDS ORDERED: HYDROmorphone 2 MG/ML VIAL (DILAUDID) IV ONE (15:15)
--- NOTE | 2022-03-02 15:26 | Discharge Inst-Simple/Standard ---
Discharge Inst-Standard Patient Instructions/Follow Up Plan of Care/Instructions/FU: [facility] 2 weeks. Activity as Tolerated: No Discharge Diet: Regular Diet Other Inst to Patient Follow up Appt: Make appointment for 2 week. Instructions: No lifting greater than 10 pounds. No strenuous activity. May shower in 24 hours, no tub bath or soaking. Use incentive spirometer at home as directed. No Smoking Skin/Wound Care: You have special glue over your incision that will fall off on it's own. Ice pack over right chest for 15 min and off 30 min and repeat as needed for discomfort. Symptoms to Report: Appetite Changes, Extremity Discoloration, Numbness/Tingling, Swelling Increased, Bleeding Excessive, Eyesight Changes, Pain Increased, Urine Color Change, Constipation(Persistent), Fever over 101 degree F, Pain/Pressure in chest, Urinating Difficulty, Cough Up/Vomit Blood, Heart Beat Irreg/Pounding, Pain/Pressure in jaw, Vaginal Bleeding Increase, Cramps in feet or legs, Lightheadedness, Pain/Pressure in shoulder, Diarrhea(Persistent), Memory Changes Suddenly, Questions/Concerns, Weight gain consecutive days, Dizziness/Fainting, Nausea/Vomiting, Shortness of Breath, Weight gain over 2 pounds If questions or concerns contact your physician Or seek help at emergency department. ABBY ZARATE DO Mar 02, 2022 15:26
--- NOTE | 2022-03-02 15:27 | Progress Note-Post Operative ---
Post-Operative Progess Note Surgeon (s)/Payment Rep (s) Surgeon ABBY ZARATE DO Payment Rep: na Pre-Operative Diagnosis end stage renal failure Post-Operative Diagnosis same Procedure & Operative Findings Date of Procedure 03/02/22 Procedure Performed/Findings u/s guided right IJ hemodialysis catheter. Anesthesia Type general Estimated Blood Loss Estimated blood loss (mL): minimal Specimens/Packing Specimens Removed na ABBY ZARATE DO Mar 02, 2022 15:27
--- NOTE | 2022-03-02 15:36 | Diagnostic Imaging Report ---
INDICATION: Dialysis catheter placement. Frontal chest obtained at 03:20 p.m. and compared to 02/25/2022. There is cardiomegaly. There is worsening of the central vascular congestion with perihilar edema. There is some infiltrate or atelectasis in the left lung base which is worsened compared to the prior study. Right basilar infiltrate has improved. There is a small amount pleural fluid on the right side and a moderate-sized left pleural effusion. There is a new dual-lumen central catheter placement right IJ approach with the tip overlying the upper SVC. There is no pneumothorax. IMPRESSION: Cardiomegaly with central vascular congestion with interstitial edema compatible with CHF. Worsening left basilar infiltrate and improving right basilar infiltrate compared to the prior study. Moderate-sized left pleural effusion and small right pleural effusion. No pneumothorax following dialysis catheter placement. Dictated by: Dictated on workstation # [id number]
--- NOTE | 2022-03-02 18:42 | Diagnostic Imaging Report ---
INDICATION: Dialysis catheter placement. TECHNIQUE: Intraoperative fluoro used during dialysis catheter placement in surgery. Single view obtained, 37.5 seconds of fluoro time was used. FINDINGS: Single image demonstrates dual-lumen central catheter in place from right IJ approach with tip overlying the low SVC. IMPRESSION: Intraoperative fluoro view demonstrates dialysis catheter placement, as above. Dictated by: Dictated on workstation # [id number]
--- NOTE | 2022-03-03 06:15 | OPERATIVE REPORT ---
DATE OF SERVICE: 03/02/2022 PREOPERATIVE DIAGNOSIS: End-stage renal failure. POSTOPERATIVE DIAGNOSIS: End-stage renal failure. PROCEDURE: Ultrasound-guided right internal jugular vein hemodialysis catheter placement with fluoroscopy guidance. SURGEON: Abby Keys DO ANESTHESIA: General. ESTIMATED BLOOD LOSS: Minimal. COMPLICATIONS: None. INDICATIONS: The patient is a 56-year-old female with end-stage renal disease. She is needing hemodialysis. The patient understands risks and benefits of procedure and wishes to proceed. Consent was signed in the chart. DESCRIPTION OF PROCEDURE: The patient was taken to the operating suite. She was prepped and draped in sterile fashion. Timeout was performed, placed in a Trendelenburg position. Ultrasound was used to isolate the right internal jugular vein. Micro access needle was used to access the right internal jugular vein under ultrasound guidance. Nonpulsatile blood was withdrawn and dark blood. The syringe was removed. The micro access wire was inserted through the needle and the needle was removed. Fluoroscopy was used to assure proper placement demonstrating the wire anatomically in the right internal jugular vein down to the right atrium. A #11 blade scalpel was used to make a small skin incision. Dilator was then advanced over the wire and the wire was removed. The normal guidewire was inserted and the sheath was then removed. The wire was secured. Fluoroscopy assured proper placement. An area for tunneling was mapped out and local anesthetic was infiltrated. An 11 blade scalpel was used to make a small skin incision at the point of tunneling. The hemodialysis catheter was then tunneled from a stab incision all the way to the wire incision with the cuff under the skin. The serial dilations were made under fluoroscopy until the dilator sheath was able to be advanced over the wire. Once this was inserted, the wire and the dilator were removed. The hemodialysis catheter was inserted through the sheath and the sheath was then removed. Fluoroscopy assured proper placement. Both ports were accessed and flushed with saline without any difficulty giving good return and flushed without difficulty. Then each morning was flushed with heparin and clamped off. The catheter was secured in the usual fashion. At the insertion point of the neck, the area was washed and dried and Skin Affix was placed over the incision. Sterile bandage was applied over the insertion site. The patient tolerated procedure well without any complications. She was taken to recovery room in stable condition. Chest x-ray pending. Job ID: [id number] DocumentID: [id number] Dictated Date: 03/02/2022 22:49:30 Window Trimmer Date: 03/03/2022 06:14:05 Dictated By: ABBY KEYS DO
--- NOTE | 2022-03-04 07:19 | Anesthesia-General Post-Op ---
General Patient Condition Mental Status/LOC: Same as Preop Cardiovascular: Satisfactory Nausea/Vomiting: Absent Respiratory: Satisfactory Pain: Controlled Complications: Absent Post Op Complications Complications None Follow Up Care/Instructions Patient Instructions None needed. Anesthesia/Patient Condition Patient Condition Patient is doing well, no complaints, stable vital signs, no apparent adverse anesthesia problems. No complications reported per nursing. D/C home per [facility] [place] Criteria: Yes BRE CAVANAUGH CRNA Mar 04, 2022 07:19
== END 2022-03-02 17:30 | disposition home or self-care (01) ==
LOC: SDC 10:34
PROVIDERS: ATTEND Surgery
DX: N18.6 End stage renal disease (principal); N05.9 Unspecified nephritic syndrome with unspecified morphologic changes; F17.210 Nicotine dependence, cigarettes, uncomplicated; Z85.41 Personal history of malignant neoplasm of cervix uteri
CPT/HCPCS: 36415; 71045; 76000; 80048; 87081

== ENCOUNTER 2022-04-23 05:38 | Outpatient (CLI) | payer MEDICAID ==
[~2022-04-23] VITALS: Ht 165.1 cm; Wt 56.0 kg
[2022-04-23] MEDS ORDERED: METO2.5T PO (16:40)
[2022-04-23] MEDS ORDERED: ALBU1.25 INH (16:40)
[2022-04-23] MEDS ORDERED: LOSA25TA41 PO (16:40)
== END 2022-04-24 12:47 | disposition home or self-care (01) ==
LOC: PREOP 05:38
PROVIDERS: ATTEND Surgery
DX: Z01.818 Encounter for other preprocedural examination (principal)

== ENCOUNTER 2022-04-30 11:25 | Day surgery (SDC) | payer MEDICAID ==
[~2022-04-30] VITALS: Ht 165.1 cm; Wt 56.0 kg
[2022-04-30] VITALS (14 sets, daily range): BP systolic 86–152; BP diastolic 56–106
[~2022-04-30 11:25] MED LIST changes: +ALBU1.25 INH; +LOSA25TA41 PO; +METO2.5T PO
[2022-04-30] MEDS ORDERED: ceFAZolin INJECTION 2,000 MG ONE (12:02)
[2022-04-30] MEDS ORDERED: ceFAZolin INJECTION 1,000 MG VIAL IV ONE (12:15)
[2022-04-30] MEDS ORDERED: LACTATED RINGERS 1,000 ML IV PRN (12:15)
[2022-04-30] MEDS ORDERED: ceFAZolin INJECTION 2,000 MG VIAL IV ONE (12:30)
[2022-04-30] MEDS ORDERED: NS IV 500 ML 500 ML IV SCH (12:30)
[2022-04-30] MEDS ORDERED: HEParin (CENTRAL IV FLUSH) 500 UNIT/5 ML SYR ONE (14:15)
[2022-04-30] MEDS ORDERED: MIDAZOLAM 2 MG/2 ML (VERSED) VIAL ONE (14:18)
[2022-04-30] MEDS ORDERED: proPOfol 200 MG/20 ML (DIPRIVAN) VIAL IV ONE (14:18)
[2022-04-30] MEDS ORDERED: fentaNYL INJ 100 MCG/2 ML AMP ONE (14:18)
[2022-04-30] MEDS ORDERED: SEVOFLURANE (ULTANE) 15 ML INHAL SOLN ONE ×2 (14:18→15:41)
[2022-04-30] MEDS ORDERED: LIDOCAINE PF 2% 5 ML (XYLOCAINE) VIAL ONE (14:18)
[2022-04-30] MEDS ORDERED: ONDANSETRON 4 MG/2 ML (SDV) Z0FRAN ONE ×2 (14:18→15:38)
[2022-04-30] MEDS ORDERED: SUCCINYLCHOLINE INJ 100 MG/5 ML SYR/VIAL ONE (14:20)
--- NOTE | 2022-04-30 14:36 | Progress Note-Pre Operative ---
Pre-Operative Progress Note Date of Available H&P: Apr 08, 2022 Date H&P Reviewed: Apr 30, 2022 Time H&P Reviewed: 14:35 History & Physical: H&P Reviewed, Patient Examed, No changes noted Pre-Operative Diagnosis: END STAGE RENAL FAILURE ABBY ZARATE DO Apr 30, 2022 14:36
[2022-04-30] MEDS ORDERED: ROCURONIUM 10 MG/ML 5 ML SYRINGE IV ONE (15:09)
[2022-04-30] MEDS ORDERED: BUP/EPI 0.5% 1:200,000 (SENSORCAINE) 30 ML VIAL IJ ONE (15:22)
[2022-04-30] MEDS ORDERED: HEParin (CENTRAL IV FLUSH) 500 UNIT/5 ML SYR XX ONE (15:24)
[2022-04-30] MEDS ORDERED: GLYCOPYRROLATE 0.2 MG/ML (ROBINUL) 2 ML VIAL ONE (15:38)
[2022-04-30] MEDS ORDERED: NEOSTIGMINE (BLOXIVERZ ) 1 MG/1ML 10 ML VIAL ONE (15:38)
--- NOTE | 2022-04-30 15:53 | Anesthesia-General Post-Op ---
General Patient Condition Mental Status/LOC: Same as Preop Cardiovascular: Satisfactory Nausea/Vomiting: Absent Respiratory: Satisfactory Pain: Controlled Complications: Absent Post Op Complications Complications None Follow Up Care/Instructions Patient Instructions None needed. Anesthesia/Patient Condition Patient Condition Patient is doing well, no complaints, stable vital signs, no apparent adverse anesthesia problems. No complications reported per nursing. GUADALUPE HUERTA CRNA Apr 30, 2022 15:53
[2022-04-30] MEDS ORDERED: fentaNYL INJ 100 MCG/2 ML AMP IVP ONE (16:00)
[2022-04-30] MEDS ORDERED: ACHD5005 PO (17:45)
--- NOTE | 2022-04-30 17:55 | Discharge Inst-Simple/Standard ---
Discharge Inst-Standard Discharge Medications New, Converted or Re-Newed RX: Transmitted to Pharmacy Patient Instructions/Follow Up Plan of Care/Instructions/FU: 2 weeks [facility] tomorrow can do half run and advance per their instructions on [facility] dialysis. Activity as Tolerated: No Discharge Diet: Regular Diet Other Inst to Patient Instructions: No lifting greater than 10 pounds. No strenuous activity. May shower in 24 hours, no tub bath or soaking. Use incentive spirometer at home as directed. No Smoking Keep incisions clean and dry. Change bandages daily and as needed. Symptoms to Report: Appetite Changes, Extremity Discoloration, Numbness/Tingling, Swelling Increased, Bleeding Excessive, Eyesight Changes, Pain Increased, Urine Color Change, Constipation(Persistent), Fever over 101 degree F, Pain/Pressure in ch est, Urinating Difficulty, Cough Up/Vomit Blood, Heart Beat Irreg/Pounding, Pain/Pressure in jaw, Vaginal Bleeding Increase, Cramps in feet or legs, Lightheadedness, Pain/Pressure in shoulder, Diarrhea(Persistent), Memory Changes Suddenly, Questions/Concerns, Weight gain consecutive days, Dizziness/Fainting, Nausea/Vomiting, Shortness of Breath, Weight gain over 2 pounds If questions or concerns contact your physician Or seek help at emergency department. ABBY ZARATE DO Apr 30, 2022 17:52
[2022-04-30] MEDS ORDERED: HYDROcodone/APAP 5 MG/325 MG (LORTAB) TAB PO ONE (18:30)
--- NOTE | 2022-05-01 01:46 | OPERATIVE REPORT ---
DATE OF SERVICE: 04/30/2022 PREOPERATIVE DIAGNOSIS: End-stage renal disease. POSTOPERATIVE DIAGNOSIS: End-stage renal disease. PROCEDURE: Laparoscopic peritoneal dialysis catheter placement. SURGEON: Abby Keys DO ANESTHESIA: General. ESTIMATED BLOOD LOSS: Minimal. COMPLICATIONS: None. INDICATIONS: The patient is a 57-year-old female with end-stage renal disease. She wishes to proceed with peritoneal dialysis. She understands risks and benefits of procedure as listed above. Consent was signed in the chart. DESCRIPTION OF PROCEDURE: The patient was taken to the operating suite. She was prepped and draped in sterile fashion. Timeout was performed. Local anesthetic was infiltrated just above the umbilicus. An 11 blade scalpel was used to make a skin incision. Cautery was used to dissect down through the fascia, which was then opened. The abdomen was then entered. Some ascitic fluid present. A 0 Vicryl was placed in a [id number] fashion for closure at the end of the case. A riddle trocar was inserted and pneumoperitoneum was achieved. Under visualization, an 8 mm trocar was then placed in the angle through the left rectus muscle down towards the pelvis. A cm peritoneal dialysis catheter was inserted and then tunneled from the incision site off laterally. This was then secured. It was flushed without difficulty and also meenakshi it back without any difficulty. The catheter was then secured with 3-0 silk suture. The abdomen was then desufflated, the trocars were removed. The 0 Vicryl was placed at the beginning of the case was then closed and the skin was closed with ivania. The patient tolerated the procedure well without any complications. She was taken to recovery room in stable condition. Job ID: [id number] DocumentID: [id number] Dictated Date: 04/30/2022 17:58:47 Deputy Probation Officer Date: 05/01/2022 01:45:22 Dictated By: ABBY KEYS DO
== END 2022-04-30 19:15 | disposition home or self-care (01) ==
LOC: SDC 11:25
PROVIDERS: ATTEND Surgery
DX: N18.6 End stage renal disease (principal); F17.210 Nicotine dependence, cigarettes, uncomplicated; Z28.311 Partially vaccinated for COVID-19
CPT/HCPCS: 49324; 84132; 87081; C1750; 36415

== ENCOUNTER → 2022-06-11 | Outpatient (CLI) | payer MEDICAID ==
[~2022-06-11] VITALS: Ht 165.1 cm; Wt 53.3 kg
[~2022-06-11] MED LIST changes: +ACHD5005 PO
== END | disposition home or self-care (01) ==
LOC: PREOP 05:34
PROVIDERS: ATTEND Surgery
DX: Z01.818 Encounter for other preprocedural examination (principal)

== ENCOUNTER 2022-06-12 10:54 | Day surgery (SDC) | payer MEDICAID ==
[~2022-06-12] VITALS: Ht 165.1 cm; Wt 53.3 kg
[2022-06-12] VITALS (7 sets, daily range): BP systolic 118–175; BP diastolic 64–87
[2022-06-12] MEDS ORDERED: LACTATED RINGERS 1,000 ML IV PRN (11:15)
[2022-06-12] MEDS ORDERED: NS IV 500 ML 500 ML IV PRN (11:15)
[2022-06-12] MEDS ORDERED: NS IV 500 ML 500 ML ONE (11:17)
[2022-06-12] MEDS ORDERED: BUP/EPI 0.5% 1:200,000 (MARCAINE) 10ML VIAL IJ ONE (11:21)
[2022-06-12] MEDS ORDERED: PROPOFOL INJECTION 50 ML IV ONE (11:39)
--- NOTE | 2022-06-12 12:32 | Progress Note-Pre Operative ---
Pre-Operative Progress Note Date of Available H&P: Jun 10, 2022 Date H&P Reviewed: Jun 12, 2022 Time H&P Reviewed: 12:31 History & Physical: H&P Reviewed, Patient Examed, No changes noted Pre-Operative Diagnosis: renal failure ABBY ZARATE DO Jun 12, 2022 12:32
[2022-06-12] MEDS ORDERED: ceFAZolin INJECTION 1,000 MG ONE (12:50)
[2022-06-12] MEDS ORDERED: ceFAZolin INJECTION 1,000 MG IV ONE (13:04)
[2022-06-12] MEDS ORDERED: BUP/EPI 0.5% 1:200,000 (SENSORCAINE) 30 ML VIAL IJ ONE (13:20)
--- NOTE | 2022-06-12 13:23 | Anesthesia-General Post-Op ---
MAC Patient Condition Mental Status/LOC: Same as Preop Cardiovascular: Satisfactory Nausea/Vomiting: Absent Respiratory: Satisfactory Pain: Controlled Complications: Absent Post Op Complications Complications None Follow Up Care/Instructions Patient Instructions None needed. Anesthesiology Discharge Order Discharge Order Patient is doing well, no complaints, stable vital signs, no apparent adverse anesthesia problems. No complications reported per nursing. CONCHIS APPLE CRNA Jun 12, 2022 13:23
--- NOTE | 2022-06-12 13:34 | Discharge Inst-Simple/Standard ---
Discharge Inst-Standard Patient Instructions/Follow Up Plan of Care/Instructions/FU: 2 weeks Massimo Activity as Tolerated: No Discharge Diet: Regular Diet Other Inst to Patient Follow up Appt: Make appointment for 2 week. Instructions: No lifting greater than 10 pounds. No strenuous activity. May shower in 24 hours, no tub bath or soaking. Use incentive spirometer at home as directed. No Smoking Skin/Wound Care: Change bandage daily and as needed till skin is healed. Symptoms to Report: Appetite Changes, Extremity Discoloration, Numbness/Tingling, Swelling Increased, Bleeding Excessive, Eyesight Changes, Pain Increased, Urine Color Change, Constipation(Persistent), Fever over 101 degree F, Pain/Pressure in chest, Urinating Difficulty, Cough Up/Vomit Blood, Heart Beat Irreg/Pounding, Pain/Pressure in jaw, Vaginal Bleeding Increase, Cramps in feet or legs, Lightheadedness, Pain/Pressure in shoulder, Diarrhea(Persistent), Memory Changes Suddenly, Questions/Concerns, Weight gain consecutive days, Dizziness/Fainting, Nausea/Vomiting, Shortness of Breath, Weight gain over 2 pounds If questions or concerns contact your physician Or seek help at emergency department. ABBY ZARATE DO Jun 12, 2022 13:34
--- NOTE | 2022-06-12 17:26 | OPERATIVE REPORT ---
DATE OF SERVICE: 06/12/2022 PREOPERATIVE DIAGNOSIS: Renal failure. POSTOPERATIVE DIAGNOSIS: Renal failure. PROCEDURE PERFORMED: Removal of hemodialysis catheter. SURGEON: Abby Keys DO. ANESTHESIA: MAC with local. ESTIMATED BLOOD LOSS: Minimal. COMPLICATIONS: None. INDICATIONS FOR PROCEDURE: The patient is a 57-year-old female with hemodialysis catheter and needing removed. She is tolerating peritoneal dialysis at this time and has been okayed to have the hemodialysis catheter removed. The patient understands the risks and benefits of procedure and wishes to proceed. Consent was signed and in chart. DESCRIPTION OF PROCEDURE: The patient was taken to the operating suite. She was prepped and draped in a sterile fashion. A timeout was performed. Local anesthetic was infiltrated around the port. Sutures were removed and hemostat was used to dissect around the catheter mobilizing the sheath and then the sheath was able to be dissected off of any surrounding tissues and the catheter was then removed in its entirety. The insertion point in the neck, where the catheter was inserted into the right internal jugular vein, pressure was held for greater than 10 minutes and hemostasis was achieved. The skin opening then had sterile bandage applied. The patient tolerated the procedure well without any complications. She was taken to recovery room in stable condition. Job ID: [id number] DocumentID: [id number] Dictated Date: 06/12/2022 13:37:25 Sequins Slinger Date: 06/12/2022 17:24:00 Dictated By: ABBY KEYS DO [facility]
== END 2022-06-12 14:06 | disposition home or self-care (01) ==
LOC: SDC 10:54
PROVIDERS: ATTEND Surgery
DX: N19 Unspecified kidney failure (principal); F17.210 Nicotine dependence, cigarettes, uncomplicated; Z86.73 Personal history of transient ischemic attack (TIA), and cerebral infarction without residual deficits
CPT/HCPCS: 87081

== ENCOUNTER 2022-11-25 05:42 | Outpatient (CLI) | payer MEDICARE, MEDICAID ==
[~2022-11-25] VITALS: Ht 165.1 cm; Wt 57.6 kg
[~2022-11-25 05:42] MED LIST changes: -POTA10CA43 PO; +POTA10CA44 PO
[2022-11-26] MEDS ORDERED: DOXA4TAB2 PO (13:48)
[2022-11-26] MEDS ORDERED: FURO40TA4 PO (13:48)
[2022-11-26] MEDS ORDERED: CALC600T91 PO (13:48)
[2022-11-26] MEDS ORDERED: POTA99CA PO (13:48)
== END 2022-11-26 13:58 | disposition home or self-care (01) ==
LOC: PREOP 05:42
PROVIDERS: ATTEND Surgery
DX: Z01.818 Encounter for other preprocedural examination (principal)

== ENCOUNTER 2022-12-08 11:03 | Day surgery (SDC) | payer MEDICARE, MEDICAID ==
[~2022-12-08] VITALS: Ht 165.1 cm; Wt 57.6 kg
[~2022-12-08 11:03] MED LIST changes: +CALC600T91 PO; +DOXA4TAB2 PO; +FURO40TA4 PO; +POTA99CA PO
[2022-12-08 11:25] VITALS: BP 138/80
[2022-12-08 13:35] VITALS: BP 127/59
[2022-12-08 13:40] VITALS: BP 121/58
[2022-12-08 13:45] VITALS: BP 139/63
[2022-12-08] MEDS ORDERED: LACTATED RINGERS 1,000 ML IV STA (14:09)
[2022-12-08 14:18] VITALS: BP 139/63
[2022-12-08] MEDS ORDERED: LACTATED RINGERS 1,000 ML IV ONE (14:24)
--- NOTE | 2022-12-08 14:47 | Anesthesia-General Post-Op ---
MAC Patient Condition Mental Status/LOC: Same as Preop Cardiovascular: Satisfactory Nausea/Vomiting: Absent Respiratory: Satisfactory Pain: Controlled Complications: Absent Post Op Complications Complications None Follow Up Care/Instructions Patient Instructions None needed. Anesthesiology Discharge Order Discharge Order Patient is doing well, no complaints, stable vital signs, no apparent adverse anesthesia problems. No complications reported per nursing. BOSSMAN CORRALES CRNA December 08, 2022 14:47
--- NOTE | 2022-12-08 20:35 | OPERATIVE REPORT ---
DATE OF SERVICE: 12/08/2022 PREOPERATIVE DIAGNOSIS: Screening colonoscopy. POSTOPERATIVE DIAGNOSIS: Colon polyps, internal hemorrhoids. PROCEDURE: Colonoscopy with hot biopsy polypectomy x1, snare polypectomy x1. SURGEON: Abby Keys DO ANESTHESIA: Per RETAIL REPRESENTATIVE. ESTIMATED BLOOD LOSS: None. COMPLICATIONS: None. SPECIMENS: Cecum and rectal polyp. DISPOSITION: Stable to recovery. INDICATIONS: The patient is a 57-year-old female, needing screening colonoscopy. She understands risks and benefits of procedure and wished to proceed. Consent was signed in chart. DESCRIPTION OF PROCEDURE: The patient was taken to endoscopy suite, placed in left lateral recumbent position. Timeout was performed. Digital rectal exam was performed noting internal hemorrhoids, no palpable polyps, masses or ulcerations. Scope was inserted in the rectum, advanced all the way to the cecum with minimal difficulty. Prep was adequate with irrigation and suction. In cecum had a slightly larger flat polyp. Hot biopsy polypectomy was performed with fulguration. Scope was then slowly retracted back. No polyps, masses or ulcerations in the ascending, transverse, descending and sigmoid colon. Once in the rectum, a larger polyp was present, which snare polypectomy was performed. This was obtained for specimen. Scope was slowly retracted back obtaining for specimen. Scope was reinserted. Scope was inserted and retracted multiple times in the rectum, just noting internal hemorrhoids too narrow to retroflex. Scope was then continuously retracted back to completely remove. The patient tolerated the procedure well without complications, taken to recovery in stable condition. RECOMMENDATIONS: I would recommend repeat colonoscopy in 3 years. [ ] polyps. Any issues before that, be seen at that time. Job ID: [id number] DocumentID: [id number] Dictated Date: 12/08/2022 13:35:55 Shank Inspector Date: 12/08/2022 20:34:00 Dictated By: ABBY KEYS DO
== END 2022-12-08 14:30 | disposition home or self-care (01) ==
LOC: ENDO 11:03
PROVIDERS: ATTEND Surgery
DX: Z12.11 Encounter for screening for malignant neoplasm of colon (principal); D12.8 Benign neoplasm of rectum; K63.5 Polyp of colon; K64.8 Other hemorrhoids; F17.210 Nicotine dependence, cigarettes, uncomplicated; Z85.41 Personal history of malignant neoplasm of cervix uteri

== ENCOUNTER → 2023-01-14 | Outpatient (CLI) | payer MEDICARE, MEDICAID | LOC: CARD 09:02 | PROVIDERS: ATTEND Physician Assistant | DX: I11.9 Hypertensive heart disease without heart failure (principal); I08.1 Rheumatic disorders of both mitral and tricuspid valves | CPT/HCPCS: 93306 ==

== ENCOUNTER → 2023-01-28 | Outpatient (CLI) | payer MEDICARE, MEDICAID ==
[2023-01-28 22:00] LABS: BODY FLUID RBC COUNT 0.004 10^6/uL; BODY FLUID WBC TOTAL COUNT 8.455 10^3/uL
[2023-01-28 22:09] LABS: BODY FLUID APPEARENCE MKD CLDY; BODY FLUID COLOR PALE YELLOW; BODY FLUID SOURCE PERITON
== END ==
LOC: LAB 18:00
PROVIDERS: ATTEND Internal Medicine Nephrology
DX: Z01.89 Encounter for other specified special examinations (principal)
CPT/HCPCS: 87070; 87205; 89051

== ENCOUNTER 2023-03-05 07:08 | Day surgery (SDC) | payer MEDICARE, MEDICAID ==
[2023-03-05] VITALS (10 sets, daily range): BP systolic 106–138; BP diastolic 70–85
[~2023-03-05] VITALS: Ht 165.1 cm; Wt 55.8 kg
[~2023-03-05 07:08] MED LIST changes: -POTA10CA44 PO; +POTA10CA84 PO
[2023-03-05] MEDS ORDERED: LIDOCAINE 1% INJ 20 ML VIAL ONE ×2 (07:11→09:26)
[2023-03-05] MEDS ORDERED: HEParin (CATH LAB) 2,000 ML IV ONE (07:12)
[2023-03-05] MEDS ORDERED: NS IV 1000 ML 1,000 ML ONE (07:12)
[2023-03-05] MEDS ORDERED: NS IV 1000 ML 1,000 ML IV SCH ×2 (07:15→09:45)
[2023-03-05 07:28] LABS: HEMATOCRIT 36 % (35-52); HEMOGLOBIN 11.7 g/dL (11.5-16.0); MEAN CORPUSCULAR HEMOGLOBIN 34 pg (25-34); MEAN CORPUSCULAR HGB CONC 33 g/dL (32-36); MEAN CORPUSCULAR VOLUME 103 fL (80-99); MEAN PLATELET VOLUME 9.5 fL (9.0-12.2); PLATELET COUNT 170 10^3/uL (130-400); WHITE BLOOD COUNT 4.5 10^3/uL (4.3-11.0)
[2023-03-05] MEDS ORDERED: FAMO20TA3 PO (07:33)
[2023-03-05] MEDS ORDERED: CALC0.253 PO (07:33)
[2023-03-05] MEDS ORDERED: ATOR10TA66 PO (07:33)
[2023-03-05] MEDS ORDERED: FURO80TA3 PO (07:33)
[2023-03-05] MEDS ORDERED: NEBI5TAB11 PO (07:33)
[2023-03-05 07:39] LABS: CALCIUM 7.4 MG/DL (8.5-10.1)
[2023-03-05 07:40] LABS: TOTAL PROTEIN 5.7 GM/DL (6.4-8.2)
[2023-03-05 07:41] LABS: INR 1.1 (0.8-1.4); PROTHROMBIN TIME PATIENT 14.8 SEC (12.2-14.7)
[2023-03-05 07:42] LABS: BILIRUBIN,TOTAL 0.3 MG/DL (0.1-1.0)
[2023-03-05 07:44] LABS: CREATININE SERUM 4.08 MG/DL (0.60-1.30)
[2023-03-05] MEDS ORDERED: fentaNYL INJ 100 MCG/2 ML AMP ONE (08:35)
[2023-03-05] MEDS ORDERED: MIDAZOLAM 5 MG/5 ML (VERSED) VIAL ONE (08:36)
[2023-03-05] MEDS ORDERED: HEParin 1000 UNIT/ML (10ML VIAL) FOR BOLUS ONE (08:36)
[2023-03-05] MEDS ORDERED: VERAPAMIL 5 MG/2 ML (CALAN) VIAL IV ONE (08:36)
[2023-03-05] MEDS ORDERED: NITRO DRIP 25000 MCG/D5W 0 ML IV ONE (08:36)
--- NOTE | 2023-03-05 08:56 | Cardiac Procedure Note-CS/ASA ---
Pre-Procedure Note Pre-Op Procedure Note Date of Available H&P: Mar 02, 2023 Date H&P Reviewed: Mar 05, 2023 Time H&P Reviewed: 08:55 History & Physical: H&P Reviewed, Patient Examed, No changes noted Pre-Operative Diagnosis: CAD Moderate Sedation PreProcedure Time 08:56 ASA Score 3 Airway Lungs Heart ASA score ASA 1: a normal healthy patient ASA 2: a patient with a mild systemic disease (mid diabetes, controlled hypertension, obesity ASA 3: a patient with a severe systemic disease that limits activity (angina, COPD, prior Myocardial infarction) ASA 4: a patient with an incapacitating disease that is a constant threat to life (CHF, renal failure) ASA 5: a moribund patient not expected to survive 24 hrs. (ruptured aneurysm) ASA 6: a declared brain- patient whose organs are being harvested. For emergent operations, add the letter E after the classification Mallampati Classification Grade 3 Sedation Plan Analgesia, Amnesia, Plan communicated to team members, Discussed options with patient/fam, Discussed risks with patient/fam The patient is an appropriate candidate to undergo the planned procedure, sedation, and anesthesia. The patient immediately re-assessed prior to indication. CHAYO GUEVARA MD Mar 05, 2023 08:56
--- NOTE | 2023-03-05 09:25 | Diagnostic Imaging Report ---
INDICATION: Stress test. Study compared 03/02/2023. FINDINGS: Cardiomegaly is improved. Vascular congestion decreased. Pulmonary edema nearly resolved and there is reduction in now small pleural effusions. IMPRESSION: 1. Favorable changes suggest reduction in sequelae of failure. No pneumothorax. No adverse change. 2. Right IJ catheter removed without apparent complication. Dictated by: Dictated on workstation # [id number]
[2023-03-05] MEDS ORDERED: PATIENT MAY USE OWN MEDS, ALL PO SCH (09:45)
--- NOTE | 2023-03-05 09:47 | Discharge Inst-Post CATH ---
Discharge Inst-CATH/EP Problems Reviewed?: Yes Post Cardiac Cath/EP D/C Inst Follow Up/Plan Appointment with Dr. Mauro's office in 2 weeks <b>CARDIAC CATH/EP PROCEDURE DISCHARGE INSTRUCTIONS</b> ACTIVITY * Go Home directly and rest. * Limit activity of the leg (or wrist if it was used) for 7 days including aerobics, swimming, jogging, bicycling, etc. * Restrict stair-climbing for 7 days if possible, if not, climb up with your non-cath leg, then bring together on the same step. * Avoid lifting, pushing, pulling or excessive movement of the affected extremity for 7 days. * Customary sexual activity may be resumed after 2 days-use caution not to use a position that strains or causes pain to the affected extremity. * No driving for 24 hours. * NO SMOKING. * Avoid straining for bowel movements for 7 days. * Gentle walking on level ground is allowed. * Returning to work will depend on the type of procedure and the results. Your doctor will discuss this with you. CALL YOUR DOCTOR FOR ANY OF THE FOLLOWING: *If bleeding from the puncture site occurs- Apply gentle pressure to site with clean cloth and call your doctor or EMS. * If a knot or lump forms under the skin, increases in size, or causes pain. * If bruising appears to be worsening or moving further down your leg instead of disappearing. * Temperature above 101 F. CARE OF YOUR GROIN INCISION; * Bruising or purple discoloration of the skin near the puncture site is common. * You may shower only, no bathtub bathing for 5 days. Be careful to avoid slipping as your leg may feel stiff. * If a closure device was used on your femoral artery, please see the attached guide regarding care of the device and your leg. * Leave dressing on FOR 24 hours. CARE OF YOUR WRIST INCISION; * Bruising or purple discoloration of the skin near the puncture site is common. * You may shower. * DO NOT submerge wrist. * Leave dressing on FOR 24 hours. CHAYO MAURO MD Mar 05, 2023 09:47
--- NOTE | 2023-03-05 09:52 | Cardiac Cath Report ---
Cardiac Cath Report Physician (s)/Ditcher (s) Physician CHAYO GUEVARA MD Pre-Procedure Diagnosis Pre-Procedure Diagnosis: CAD Post-Procedure Note Procedure Start Date: Mar 05, 2023 Name of Procedure: Attempt for cardiac catheterization Left lower extremity runoff Findings/Procedure Note 57-year-old lady with history of chronic kidney disease maintained on peritoneal dialysis, had an abnormal stress test, scheduled for cardiac catheterization possible PTCA. After explaining the procedure to the patient all pros and cons were explained all questions were answered. Patient was placed on the cardiac catheterization laboratory, groin and radial area was prepped. Attempt to access the right radial artery has failed. The artery appeared to be very small. Attempt to access the right femoral artery was successful, I was able to access the femoral artery but was unable to advance the wire, I attempted with J-wire and a Storq wire without success. I did manual injections through the needle in the right common femoral artery and it appeared to be occluded. The left groin was prepped I was able to access the left femoral artery, was unable to advance the J-wire. I advanced a Leon right catheter with a Storq and was unable to proceed beyond the abdominal bifurcation, I attempted with the Glidewire without success. I did manual injection at the left common iliac artery and there was no flow it appears that the lower abdominal aorta is occluded, I pulled back the catheter to the common femoral artery and did another manual injection and it appears that it was reconstructed by collaterals. 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 Recommendation: I am planning to refer for vascular surgery evaluation, possible referral to a tertiary care center Anesthesia Type: Conscious Sedation Estimated blood loss (mL): 5 ml Contrast Amount: 10 ml Total Radiation Dose: 75 mGy Post-Procedure Diagnosis Post-operative diagnosis: Peripheral arterial disease End-stage kidney disease Hypertension Hyperlipidemia CHAYO GUEVARA MD Mar 05, 2023 09:52
== END 2023-03-05 14:50 | disposition home or self-care (01) ==
LOC: CATH 07:08 → ICU 10:15 → CATH 14:50
PROVIDERS: ATTEND Internal Medicine Cardiovascular Disease
DX: I74.09 Other arterial embolism and thrombosis of abdominal aorta (principal); I74.5 Embolism and thrombosis of iliac artery; I74.3 Embolism and thrombosis of arteries of the lower extremities; I25.10 Atherosclerotic heart disease of native coronary artery without angina pectoris; I73.9 Peripheral vascular disease, unspecified; I12.0 Hypertensive chronic kidney disease with stage 5 chronic kidney disease or end stage renal disease; R94.39 Abnormal result of other cardiovascular function study; N18.6 End stage renal disease; I27.20 Pulmonary hypertension, unspecified; N28.9 Disorder of kidney and ureter, unspecified; E78.2 Mixed hyperlipidemia; I65.23 Occlusion and stenosis of bilateral carotid arteries; F17.210 Nicotine dependence, cigarettes, uncomplicated; Z99.2 Dependence on renal dialysis; Z79.899 Other long term (current) drug therapy
CPT/HCPCS: 36140; 71045; 75710; 80053; 80061; 85027; 85610; 85730; 87081; 93005; C1769 ×2; C1894 ×2; 36415